=== PATIENT | male | born 1970 | race Caucasian/White ===

== ENCOUNTER 2023-06-02 21:36 | Inpatient (IN) | payer BC, MEDICAID, OTHER ==
[2023-06-02 23:03] LABS: Appearance,Urine Clear (Clear); Bacteria,Urine Rare /hpf; Bilirubin,Urine Negative (Negative); Blood,Urine Trace (Negative); Color,Urine Colorless; Glucose,Urine (UA) 3+ (Negative); Hyaline Casts,Urine 6 /lpf (0-2); Ketones,Urine Negative (Negative); Leukocyte Esterase,Urine Negative (Negative); Nitrite,Urine Negative (Negative); PH, Urine 5.5 (5.0-8.0); Protein,Urine Trace (Negative); RBC,Urine <1 /hpf (0-5); Specific Gravity,Urine 1.008 (1.001-1.035); Uric Acid Crystals,Urine Rare /hpf; Urobilinogen,Urine <2.0 mg/dL (<2.0); WBC,Urine <1 /hpf (0-5)
--- NOTE | 2023-06-02 23:12 | ED ---
General Adult HPI - General Source: patient, family, EMS, RN notes reviewed, old records reviewed Mode of arrival: EMS Limitations: altered mental status <Molina Eric - Last Filed: 06/03/23 00:51> <Gavin Moseley - Last Filed: 06/03/23 15:45> <Young Noel - Last Filed: 06/03/23 22:45> - General Chief complaint: Psychiatric Symptoms Stated complaint: mental Time Seen by Provider: 06/02/23 21:44 - History of Present Illness Initial comments: Patient is a 53-year-old male who presents emergency department after being brought in by police for paranoia, abuse. Apparently patient's mother is currently in the hospital. There is concern that he may be having increased paranoia. No history of mental health in the past. Does a history of polysubstance abuse and endorses using cocaine. Currently has no acute complaints at this time. States he thought he saw someone putting a blanket over a trash can earlier but it turned out to be a pillow. He called police who brought him here for further evaluation. Is alert and oriented x 3. No focal complaints. Does endorse drinking alcohol today. Presents for further evaluation.Denies any current suicidal, homicidal ideations, intents, plans. Denies any visual or auditory hallucinations. When police arrived, patient was holding a gun. (Molina Eric) - Related Data Home Medications Medication Instructions Recorded Confirmed ALPRAZolam [Xanax] 1 mg PO TID 06/02/23 06/02/23 Atorvastatin [Lipitor] 40 mg PO DAILY 06/02/23 06/02/23 Clopidogrel [Plavix] 75 mg PO DAILY 06/02/23 06/02/23 Cyclobenzaprine [Flexeril] 10 mg PO DAILY PRN 06/02/23 06/02/23 Ergocalciferol [Vitamin D2 (1250 1,250 mcg PO TUTH 06/02/23 06/02/23 Mcg = 15656 Iu)] Metoprolol Tartrate [Lopressor] 75 mg PO BID 06/02/23 06/02/23 lisinopriL 40 mg PO DAILY 06/02/23 06/02/23 Allergies Allergy/AdvReac Type Severity Reaction Status Date / Time No Known Allergies Allergy Verified 06/02/23 22:02 Review of Systems ROS Other: All systems not noted in ROS Statement are negative. <HernestoMolina - Last Filed: 06/03/23 00:51> ROS Other: All systems not noted in ROS Statement are negative. <Gavin Moseley - Last Filed: 06/03/23 15:45> ROS Other: All systems not noted in ROS Statement are negative. <Young Noel - Last Filed: 06/03/23 22:45> ROS Statement: Those systems with pertinent positive or pertinent negative responses have been documented in the HPI. Review of Systems: CONST: Denies fever EYES: Denies blurry vision ENT: Denies nasal congestion C/V: Denies Chest pain RESP: Denies shortness of breath GI: Denies abdominal pain : Denies dysuria SKIN: Denies rash. MSK: Denies joint pain. NEURO: Denies headache (Molina Eric) Past Medical History Past Medical History: CVA/TIA, Hypertension Additional Past Medical History / Comment(s): ETOH, diverticulitis Past Surgical History: No Surgical Hx Reported Past Psychological History: No Psychological Hx Reported Smoking Status: Former smoker Past Alcohol Use History: Abuse, Daily, Heavy Past Drug Use History: Cocaine <Molina Eric - Last Filed: 06/03/23 00:51> General Exam Limitations: altered mental status <Molina Eric - Last Filed: 06/03/23 00:51> - General Exam Comments Initial Comments: General: Appears in no acute distress. HEAD: Normal with no signs of head trauma. EYES: PERRLA, EOMI, conjunctiva normal, no discharge. ENT: Hearing grossly intact, normal oropharynx. RESPIRATORY: Clear breath sounds bilaterally. No wheezes, rales, or rhonchi. C/V: Regular rate and rhythm. S1 and S2 auscultated, no edema, peripheral pulses 2+ and intact throughout ABD: Abd is soft, nontender, nondistended EXT: Normal range of motion, no obvious deformity SKIN: No rashes or lesions observed on exposed skin. NEURO: Alert and oriented x 4. No evidence of alcohol withdrawals. No tongue fasciculations, tremors, tachycardia. (Molina Eric) Course Vital Signs 06/02/23 06/03/23 06/03/23 21:37 06:49 15:00 Temperature 98.7 F 98.4 F Pulse Rate 98 88 139 H Respiratory 18 18 18 Rate Blood Pressure 140/89 136/86 127/80 O2 Sat by Pulse 98 98 91 L Oximetry Medical Decision Making - Lab Data Result diagrams: 06/02/23 23:19 06/02/23 23:19 - EKG Data -: EKG Interpreted by Me <Molina Eric - Last Filed: 06/03/23 00:51> - Lab Data Result diagrams: 06/02/23 23:19 06/02/23 23:19 <Gavin Moseley - Last Filed: 06/03/23 15:45> - Lab Data Result diagrams: 06/02/23 23:19 06/02/23 23:19 <Young Noel - Last Filed: 06/03/23 22:45> - Medical Decision Making Was pt. sent in by a medical professional or institution (, PA, [employer] C[employer]TER, urgent care, hospital, or alf...) When possible be specific @ -No Did you speak to anyone other than the patient for history (EMS, parent, family, police, friend...)? What history was obtained from this source @ -No Did you review nursing and triage notes (agree or disagree)? Why? @ -I reviewed and agree with nursing and triage notes Were old charts reviewed (outside hosp., previous admission, EMS record, old EKG, old radiological studies, urgent care reports/EKG's, alf records)? Report findings @ -Old charts reviewed Differential Diagnosis (chest pain, altered mental status, abdominal pain women, abdominal pain men, vaginal bleeding, weakness, fever, dyspnea, syncope, headache, dizziness, GI bleed, back pain, seizure, CVA, palpatations, mental health, musculoskeletal)? @ -Differential Mental Health Depression, anxiety, bipolar, psychosis, schizophrenia, borderline personality, situational depression, adjustment disorder, behavioral disorder, brain tumor, malingering, substance abuse, encephalopathy, medication reaction, dementia, hypothyroidism, degenerative neurologic disorder, lupus.... This is not meant to be all-inclusive list EKG interpreted by me (3pts min.). @ -As above X-rays interpreted by me (1pt min.). @ -None done CT interpreted by me (1pt min.). @ -CT brain reveals no evidence of acute intracranial injury or process. U/S interpreted by me (1pt. min.). @ -None done What testing was considered but not performed or refused? (CT, X-rays, U/S, labs)? Why? @ -None What meds were considered but not given or refused? Why? @ -None Did you discuss the management of the patient with other professionals (professionals i.e. , PA, [employer] C[employer]TER, lab, RT, psych nurse, social group worker, turning sander operator, teacher, youth corrections officer, lining caser)? Give summary @ -No Was smoking cessation discussed for >3mins.? @ -No Was critical care preformed (if so, how long)? @ -No Were there social determinants of health that impacted care today? How? (Homelessness, low income, unemployed, alcoholism, drug addiction, transportation, low edu. Level, literacy, decrease access to med. care, half-way, rehab)? @ -No Was there de-escalation of care discussed even if they declined (Discuss DNR or withdrawal of care, Hospice)? DNR status @ -No What co-morbidities impacted this encounter? (DM, HTN, Smoking, COPD, CAD, Cancer, CVA, ARF, Chemo, Hep., AIDS, mental health diagnosis, sleep apnea, morbid obesity)? @ -None Was patient admitted / discharged? Hospital course, mention meds given and route, prescriptions, significant lab abnormalities, going to OR and other pertinent info. @ -Patient presents for mental health evaluation after being brought in by police for paranoia as well as being found holding a gun. He currently has no acute complaints at this time but appears intoxicated. Will obtain basic wo rkup, as well as CT brain for the new onset paranoia as he does endorse thinking he may have saw someone breaking in which is why he states he got the gun. Vital signs are within acceptable limits. No evidence of alcohol withdrawals at this time but we will place him on [facility] protocol. Patient in agreement this plan.Patient does have a history of daily alcohol abuse however currently has no evidence of alcohol withdrawals. Screening EKG reveals no evidence of acute ischemic l process. CT brain shows no obvious acute intracranial process. Laboratory studies are relatively unremarkable except for mild hypomagnesemia of 1.2. Possible slight MICHELLE as well with a creatinine of 1.74. Alcohol level negative.Patient's labs remarkable for mild hypomagnesemia which is replenished. Patient also given a 1 L fluid bolus. At this time patient is medically cleared for evaluation by psychiatry. Disposition pending psychiatric evaluation. EPS notified of the consult. Undiagnosed new problem with uncertain prognosis? @ -No Drug Therapy requiring intensive monitoring for toxicity (Heparin, Nitro, Insulin, Cardizem)? @ -No Were any procedures done? @ -No Diagnosis/symptom? @ -Encounter for psychiatric evaluation, paranoia Acute, or Chronic, or Acute on Chronic? @ -Acute Uncomplicated (without systemic symptoms) or Complicated (systemic symptoms)? @ -Complicated Side effects of treatment? @ -None Exacerbation, Progression, or Severe Exacerbation] @ -No Poses a threat to life or bodily function? @ -Possibly, yes (Molina Eric) Dr. Noel be taking over the care of this patient at 3 PM (Gavin Moseley) The patient was endorsed to me by Dr. Constantino shift change pending evaluation by EPS he is diagnosed with hallucinations both auditory and visual as well as depression and anxiety was pt. sent in by a medical professional or institution (, PA, [employer]TER, urgent care, hospital, or alf...) When possible be specific @ -Dr. Moseley Did you speak to anyone other than the patient for history (EMS, parent, family, police, friend...)? What history was obtained from this source @ -Dr. Moseley Did you review nursing and triage notes (agree or disagree)? Why? @ -I reviewed and agree with nursing and triage notes Were old charts reviewed (outside hosp., previous admission, EMS record, old EKG, old radiological studies, urgent care reports/EKG's, alf records)? Report findings @ -No old charts were reviewed Differential Diagnosis (chest pain, altered mental status, abdominal pain women, abdominal pain men, vaginal bleeding, weakness, fever, dyspnea, syncope, headache, dizziness, GI bleed, back pain, seizure, CVA, palpatations, mental health, musculoskeletal)? @ -Paranoia, depression, hallucinations EKG interpreted by me (3pts min.). @ -Not applicable X-rays interpreted by me (1pt min.). @ -None done CT interpreted by me (1pt min.). @ -None done U/S interpreted by me (1pt. min.). @ -None done What testing was considered but not performed or refused? (CT, X-rays, U/S, labs)? Why? @ -None What meds were considered but not given or refused? Why? @ -None Did you discuss the management of the patient with other professionals (professionals i.e. , PA, [employer] RE[employer] C[employer]TER, lab, RT, psych nurse, social group worker, turning sander operator, teacher, youth corrections officer, lining caser)? Give summary @ -No Was smoking cessation discussed for >3mins.? @ -No Was critical care preformed (if so, how long)? @ -No Were there social determinants of health that impacted care today? How? (Homelessness, low income, unemployed, alcoholism, drug addiction, transportation, low edu. Level, literacy, decrease access to med. care, half-way, rehab)? @ -No Was there de-escalation of care discussed even if they declined (Discuss DNR or withdrawal of care, Hospice)? DNR status @ -No What co-morbidities impacted this encounter? (DM, HTN, Smoking, COPD, CAD, Cancer, CVA, ARF, Chemo, Hep., AIDS, mental health diagnosis, sleep apnea, morbid obesity)? @ -None Was patient admitted / discharged? Hospital course, mention meds given and route, prescriptions, significant lab abnormalities, going to OR and other pertinent info. @ -Hospital course the patient was admitted to the psychiatric unit for inpatient evaluation and treatment Undiagnosed new problem with uncertain prognosis? @ -No Drug Therapy requiring intensive monitoring for toxicity (Heparin, Nitro, Insulin, Cardizem)? @ -No Were any procedures done? @ -No Diagnosis/symptom? @ -Hallucinations, depression, anxiety Acute, or Chronic, or Acute on Chronic? @ -Acute Uncomplicated (without systemic symptoms) or Complicated (systemic symptoms)? @ -Default Side effects of treatment? @ -No Exacerbation, Progression, or Severe Exacerbation? @ -No Poses a threat to life or bodily function? How? (Chest pain, [place], ND, pneumonia, PE, COPD, DKA, ARF, appy, cholecystitis, CVA, Diverticulitis, Homicidal, Suicidal, threat to staff... and all critical care pts) @ -Potential (Young Noel) - Lab Data Lab Results 06/02/23 06/02/23 06/02/23 Range/Units 22:40 22:40 23:19 WBC 9.0 (3.8-10.6) k/uL RBC 3.30 L (4.30-5.90) m/uL Hgb 11.3 L (13.0-17.5) gm/dL Hct 33.5 L (39.0-53.0) % MCV 101.7 H (80.0-100.0) fL MCH 34.3 (25.0-35.0) pg MCHC 33.7 (31.0-37.0) g/dL RDW 16.3 H (11.5-15.5) % Plt Count 372 (150-450) k/uL MPV 8.6 Neutrophils % 78 % Lymphocytes % 15 % Monocytes % 3 % Eosinophils % 1 % Basophils % 0 % Neutrophils # 7.0 (1.3-7.7) k/uL Lymphocytes # 1.4 (1.0-4.8) k/uL Monocytes # 0.3 (0-1.0) k/uL Eosinophils # 0.1 (0-0.7) k/uL Basophils # 0.0 (0-0.2) k/uL Anisocytosis Slight Macrocytosis Moderate Sodium (137-145) mmol/L Potassium (3.5-5.1) mmol/L Chloride (98-107) mmol/L Carbon Dioxide (22-30) mmol/L Anion Gap mmol/L BUN (9-20) mg/dL Creatinine (0.66-1.25) mg/dL Est GFR (CKD-EPI)AfAm (>60 ml/min/1.73 sqM) Est GFR (CKD-EPI)NonAf (>60 ml/min/1.73 sqM) Glucose (74-99) mg/dL Calcium (8.4-10.2) mg/dL Magnesium (1.6-2.3) mg/dL Urine Color Colorless Urine Appearance Clear (Clear) Urine pH 5.5 (5.0-8.0) Ur Specific [place] 1.008 (1.001-1.035) Urine Protein Trace H (Negative) Urine Glucose (UA) 3+ H (Negative) Urine Ketones Negative (Negative) Urine Blood Trace H (Negative) Urine Nitrite Negative (Negative) Urine Bilirubin Negative (Negative) Urine Urobilinogen <2.0 (<2.0) mg/dL Ur Leukocyte Esterase Negative (Negative) Urine RBC <1 (0-5) /hpf Urine WBC <1 (0-5) /hpf Uric Acid Crystals Rare H (None) /hpf Urine Bacteria Rare H (None) /hpf Hyaline Casts 6 H (0-2) /lpf Urine Opiates Screen Not Detected (NotDetected) Ur Oxycodone Screen Not Detected (NotDetected) Urine Methadone Screen Not Detected (NotDetected) Ur Barbiturates Screen Not Detected (NotDetected) U Tricyclic Antidepress Not Detected (NotDetected) Ur Phencyclidine Scrn Not Detected (NotDetected) Ur Amphetamines Screen Not Detected (NotDetected) U Methamphetamines Scrn Not Detected (NotDetected) U Benzodiazepines Scrn Detected H (NotDetected) Urine Cocaine Screen Detected H (NotDetected) U Marijuana (THC) Screen Not Detected (NotDetected) Serum Alcohol mg/dL Influenza Type A (PCR) (Not Detectd) Influenza Type B (PCR) (Not Detectd) RSV (PCR) (Not Detectd) SARS-CoV-2 (PCR) (Not Detectd) 06/02/23 06/03/23 Range/Units 23:19 13:45 WBC (3.8-10.6) k/uL RBC (4.30-5.90) m/uL Hgb (13.0-17.5) gm/dL Hct (39.0-53.0) % MCV (80.0-100.0) fL MCH (25.0-35.0) pg MCHC (31.0-37.0) g/dL RDW (11.5-15.5) % Plt Count (150-450) k/uL MPV Neutrophils % % Lymphocytes % % Monocytes % % Eosinophils % % Basophils % % Neutrophils # (1.3-7.7) k/uL Lymphocytes # (1.0-4.8) k/uL Monocytes # (0-1.0) k/uL Eosinophils # (0-0.7) k/uL Basophils # (0-0.2) k/uL Anisocytosis Macrocytosis Sodium 133 L (137-145) mmol/L Potassium 4.0 (3.5-5.1) mmol/L Chloride 95 L (98-107) mmol/L Carbon Dioxide 26 (22-30) mmol/L Anion Gap 12 mmol/L BUN 15 (9-20) mg/dL Creatinine 1.74 H (0.66-1.25) mg/dL Est GFR (CKD-EPI)AfAm 51 (>60 ml/min/1.73 sqM) Est GFR (CKD-EPI)NonAf 45 (>60 ml/min/1.73 sqM) Glucose 93 (74-99) mg/dL Calcium 9.2 (8.4-10.2) mg/dL Magnesium 1.2 L (1.6-2.3) mg/dL Urine Color Urine Appearance (Clear) Urine pH (5.0-8.0) Ur Specific [place] (1.001-1.035) Urine Protein (Negative) Urine Glucose (UA) (Negative) Urine Ketones (Negative) Urine Blood (Negative) Urine Nitrite (Negative) Urine Bilirubin (Negative) Urine Urobilinogen (<2.0) mg/dL Ur Leukocyte Esterase (Negative) Urine RBC (0-5) /hpf Urine WBC (0-5) /hpf Uric Acid Crystals (None) /hpf Urine Bacteria (None) /hpf Hyaline Casts (0-2) /lpf Urine Opiates Screen (NotDetected) Ur Oxycodone Screen (NotDetected) Urine Methadone Screen (NotDetected) Ur Barbiturates Screen (NotDetected) U Tricyclic Antidepress (NotDetected) Ur Phencyclidine Scrn (NotDetected) Ur Amphetamines Screen (NotDetected) U Methamphetamines Scrn (NotDetected) U Benzodiazepines Scrn (NotDetected) Urine Cocaine Screen (NotDetected) U Marijuana (THC) Screen (NotDetected) Serum Alcohol <10 mg/dL Influenza Type A (PCR) Not Detected (Not Detectd) Influenza Type B (PCR) Not Detected (Not Detectd) RSV (PCR) Not Detected (Not Detectd) SARS-CoV-2 (PCR) Not Detected (Not Detectd) - EKG Data EKG Comments: 12-lead Electrocardiogram Interpretation Note EKG was reviewed and interpreted by myself. 12-lead ECG performed at 0023 is interpreted by me as revealing normal sinus rhythm at a rate of 91 beats per minute. [place] is normal. RI interval is 168 ms, QRS duration is 91 ms, QTc is 397 ms.. There were no ST or T wave abnormalities to suggest myocardial ischemia or injury. R wave progression across the precordium was satisfactory. By my interpretation this EKG is non-diagnostic for acute ischemia. (Molina Eric) Disposition <Molina Eric - Last Filed: 06/03/23 00:51> <Gavin Moseley - Last Filed: 06/03/23 15:45> Decision Date: 06/03/23 <Young Noel - Last Filed: 06/03/23 22:45> Clinical Impression: Encounter for psychiatric assessment, Paranoia, Depression, Acute anxiety, Hallucinations Disposition: TRANSFER TO PSYCH HOSP/UNIT Condition: Stable
[2023-06-02 23:15] LABS: Amphetamine Screen,Urine Not Detected (NotDetected); Barbiturate Screen,Urine Not Detected (NotDetected); Benzodiazepines Screen,Urine Detected (NotDetected); Cocaine Screen,Urine Detected (NotDetected); Methadone Screen, Urine Not Detected (NotDetected); Opiate Screen,Urine Not Detected (NotDetected); Oxycodone Screen, Urine Not Detected (NotDetected); Phencyclidine Screen,Urine Not Detected (NotDetected); Tricyclic Antidepressant,Urine Not Detected (NotDetected); Urn Cannabinoid Scrn Not Detected (NotDetected)
[2023-06-02 23:25] LABS: Anisocytosis Slight; Basophils % (A) 0 %; Eosinophils # (A) 0.1 k/uL (0-0.7); Eosinophils % (A) 1 %; HCT 33.5 % (39.0-53.0); HGB 11.3 gm/dL (13.0-17.5); Lymphocytes # (A) 1.4 k/uL (1.0-4.8); Lymphocytes % (A) 15 %; MCH 34.3 pg (25.0-35.0); MCHC 33.7 g/dL (31.0-37.0); MCV 101.7 fL (80.0-100.0); Macrocytosis Moderate; Mean Platelet Volume 8.6; Monocytes # (A) 0.3 k/uL (0-1.0); Monocytes % (A) 3 %; Neutrophils % (A) 78 %; Platelet Count 372 k/uL (150-450); RDW 16.3 % (11.5-15.5)
[2023-06-02 23:40] LABS: African American GFR (CKD) 51 (>60 ml/min/1.73 sqM); Alcohol <10 mg/dL; Anion Gap 12 mmol/L; Blood Urea Nitrogen 15 mg/dL (9-20); Calcium 9.2 mg/dL (8.4-10.2); Carbon Dioxide 26 mmol/L (22-30); Chloride 95 mmol/L (98-107); Glucose 93 mg/dL (74-99); Magnesium 1.2 mg/dL (1.6-2.3); Non-African American GFR(CKD) 45 (>60 ml/min/1.73 sqM); Sodium 133 mmol/L (137-145)
[2023-06-03] MEDS: SODIUM CHLORIDE 0.9% 1,000 ML IV STA (00:14)
[2023-06-03] MEDS: MAGNESIUM SULFATE-D5W PMX 1 GM in DEXTROSE/WATER 1 100ML.BAG IVPB ONE (00:14)
--- NOTE | 2023-06-03 00:23 | CT ---
EXAM: CT Head Without Intravenous Contrast CLINICAL HISTORY: ITS.REASON CT Reason: paranoia, new onset TECHNIQUE: Axial computed tomography images of the head/brain without intravenous contrast. CTDI is 49.2 mGy and DLP is 1183.4 mGy-cm. This CT exam was performed using one or more of the following dose reduction techniques: automated exposure control, adjustment of the mA and/or kV according to patient size, and/or use of iterative reconstruction technique. COMPARISON: No relevant prior studies available. FINDINGS: Brain: Unremarkable. No hemorrhage. No significant white matter disease. No edema. Small pineal cyst. Ventricles: Unremarkable. No ventriculomegaly. Bones/joints: Unremarkable. No acute fracture. Soft tissues: Unremarkable. Sinuses: Unremarkable as visualized. No acute sinusitis. Mastoid air cells: Unremarkable as visualized. No mastoid effusion. IMPRESSION: No evidence of acute intracranial pathology.
[2023-06-03] MEDS ORDERED: LORazepam 2 MG/ML INJ IV PRN ×3 (00:51)
[2023-06-03] MEDS: THIAMINE 100 MG/ML 2 ML VIAL IM STA (00:58)
[2023-06-03] MEDS ORDERED: CYCLOBENZAPRINE 10 MG TAB PO PRN (16:00)
[2023-06-03] MEDS: ALPRAZolam 1 MG TAB PO SCH (16:14)
[2023-06-03] MEDS: lisinopriL 20 MG TAB PO ONE (16:19)
[2023-06-03] MEDS: METOPROLOL TARTRATE 25 MG TAB PO ONE (16:20)
[2023-06-03] MEDS ORDERED: LORazepam 1 MG TAB PO PRN ×3 (17:59→18:41)
[2023-06-03] MEDS ORDERED: MAG HYDROX/AL HYDROX/SIMETH 30 ML CUP PO PRN (17:59)
[2023-06-03] MEDS ORDERED: HALOPERIDOL LACTATE 5 MG/ML 1 ML VIAL IM PRN (17:59)
[2023-06-03] MEDS ORDERED: MAGNESIUM HYDROXIDE 2,400 MG/30 ML CUP PO PRN (17:59)
[2023-06-03] MEDS ORDERED: haloperidoL 5 MG TAB PO PRN (17:59)
[2023-06-03] MEDS ORDERED: ACETAMINOPHEN TAB 325 MG TAB PO PRN (17:59)
[2023-06-03] MEDS: LORazepam 1 MG TAB PO PRN (19:50)
[2023-06-03] MEDS: METOPROLOL TARTRATE 25 MG TAB PO SCH (19:56)
[2023-06-03] MEDS ORDERED: METOPROLOL TARTRATE 25 MG TAB PO SCH (21:00)
[2023-06-04] MEDS: MULTIVITAMINS, THERA 1 EACH TAB PO SCH (07:56)
[2023-06-04] MEDS: lisinopriL 20 MG TAB PO SCH (07:57)
[2023-06-04] MEDS: FOLIC ACID 1 MG TAB PO SCH (07:59)
[2023-06-04] MEDS: THIAMINE 100 MG TAB PO SCH (07:59)
[2023-06-04] MEDS: ATORVASTATIN 40 MG TAB PO SCH (07:59)
[2023-06-04] MEDS ORDERED: lisinopriL 20 MG TAB PO SCH (09:00)
[2023-06-04] MEDS: CLOPIDOGREL 75 MG TAB PO SCH (09:44)
--- NOTE | 2023-06-04 13:35 | P.MDCNMH ---
History of Present Illness H&P Date: 06/04/23 History of present illness; patient 53-year-old gentleman with past medical history significant for stroke, hypertension brought to the ER for psychiatric evaluation. Patient was brought in by police for increased paranoia. Patient called police as he thought somebody put a blanket over trash can. Police found him holding a gun. There was no complaint of auditory or visual hallucinations. Denies any homicidal or suicidal thoughts. Patient was workup in the ER Initial lab work done in the ER showed WBC 9, hemoglobin 9.3, platelet count 372, sodium 133, potassium 4, BUN 15, creatinine 1.74 UA showed nitrite negative, leukocyte esterase negative, urine WBC less than 1 Influenza A not detected Influenza B not detected RSV not detected COVID-19 not detected Urine tox screen positive for benzodiazepine and cocaine EKG done in the ER showed heart rate of 91, no ST segment elevation or de pression seen, no T-wave inversions seen. CT head done showed no acute intracranial process Patient admitted to psych REVIEW OF SYSTEMS: CONSTITUTIONAL: No fever, no malaise, no fatigue. HEENT: No recent visual problems or hearing problems. Denied any sore throat. CARDIOVASCULAR: No chest pain, orthopnea, PND, no palpitations, no syncope. PULMONARY: No shortness of breath, no cough, no hemoptysis. GASTROINTESTINAL: No diarrhea, no nausea, no vomiting, no abdominal pain. NEUROLOGICAL: No headaches, no weakness, no numbness. HEMATOLOGICAL: Denies any bleeding or petechiae. GENITOURINARY: Denies any burning micturition, frequency, or urgency. MUSCULOSKELETAL/RHEUMATOLOGICAL: Denies any joint pain, swelling, or any muscle pain. ENDOCRINE: Denies any polyuria or polydipsia. The rest of the 14-point review of systems is negative. PHYSICAL EXAMINATION: GENERAL: The patient is alert and oriented x3, not in any acute distress. Well developed, well nourished. HEENT: Pupils are round and equally reacting to light. EOMI. No scleral icterus. No conjunctival pallor. Normocephalic, atraumatic. No pharyngeal erythema. No thyromegaly. CARDIOVASCULAR: S1 and S2 present. No murmurs, rubs, or gallops. PULMONARY: Chest is clear to auscultation, no wheezing or crackles. ABDOMEN: Soft, nontender, nondistended, normoactive bowel sounds. No palpable organomegaly. MUSCULOSKELETAL: No joint swelling or deformity. EXTREMITIES: No cyanosis, clubbing, or pedal edema. NEUROLOGICAL: Gross neurological examination did not reveal any focal deficits. SKIN: No rashes. Assessment and plan Paranoia Polysubstance abuse Alcohol abuse Hypertension History of stroke Monitor vital signs Continue Plavix Continue Lipitor Hold lisinopril for now, resume once systolic blood pressures more than 130 Continue Lopressor Continue psych meds per psychiatry team Labs and medication were reviewed.. Continue same treatment. Continue with symptomatic treatment. Resume home medication. Monitor labs and vitals. DVT and GI prophylaxis. Further recommendations as per clinical course of the patient Dictation was produced using [employer] dictation software. please excuse any grammatical, word or spelling errors. Past Medical History Past Medical History: CVA/TIA, Hyperlipidemia, Hypertension Additional Past Medical History / Comment(s): ETOH, diverticulitis History of Any Multi-Drug Resistant Organisms: None Reported Past Surgical History: Bowel Resection Additional Past Surgical History / Comment(s): 6 in of bowel removed. carotid artery surgery Past Anesthesia/Blood Transfusion Reactions: No Reported Reaction Smoking Status: Former smoker, Vaper - Past Family History Mother Family Medical History: CVA/TIA Medications and Allergies Home Medications Medication Instructions Recorded Confirmed Type ALPRAZolam [Xanax] 1 mg PO TID 06/02/23 06/02/23 History Atorvastatin [Lipitor] 40 mg PO DAILY 06/02/23 06/02/23 History Clopidogrel [Plavix] 75 mg PO DAILY 06/02/23 06/02/23 History Cyclobenzaprine [Flexeril] 10 mg PO DAILY PRN 06/02/23 06/02/23 History Ergocalciferol [Vitamin D2 (1250 1,250 mcg PO TUTH 06/02/23 06/02/23 History Mcg = 97608 Iu)] Metoprolol Tartrate [Lopressor] 75 mg PO BID 06/02/23 06/02/23 History lisinopriL 40 mg PO DAILY 06/02/23 06/02/23 History Allergies Allergy/AdvReac Type Severity Reaction Status Date / Time No Known Allergies Allergy Verified 06/02/23 22:02 Physical Exam Vitals: Vital Signs Temp Pulse Pulse Resp BP BP Pulse Ox 06/03/23 22:30 97.0 F L 78 16 110/71 95 06/03/23 19:52 98.0 F 100 18 98/60 98 06/03/23 18:44 97.0 F L 78 16 110/71 93 L 06/03/23 15:00 139 H 18 127/80 91 L Intake and Output 06/03/23 06/04/23 06/04/23 22:59 06:59 14:59 Other: Weight 124.5 kg Cranial Nerve Examination - Cranial Nerves Cranial Nerve II- Optic: Intact (Cranial nerves II to XII intact) Cranial Nerve III- Oculomotor: Intact Cranial Nerve IV- Trochlear: Intact Cranial Nerve V- Trigeminal: Intact Cranial Nerve - Abducens: Intact Cranial Nerve VII- Facial: Intact Cranial Nerve VIII- Auditory: Intact Cranial Nerve IX- Glossopharyngeal: Intact Cranial Nerve X- Vagus: Intact Cranial Nerve XI- Accessory: Intact Cranial Nerve XII- Hypoglossal: Intact Results CBC & Chem 7: 06/02/23 23:19 06/02/23 23:19
[2023-06-04] MEDS: GABAPENTIN 100 MG CAP PO SCH (16:09)
[2023-06-04] MEDS: LORazepam 1 MG TAB PO PRN (20:08)
--- NOTE | 2023-06-04 22:51 | P.HP ---
Psychiatric H&P - . H&P Date: 06/04/23 History & Physical: Allergies Allergy/AdvReac Type Severity Reaction Status Date / Time No Known Allergies Allergy Verified 06/02/23 22:02 Vital Signs Temp 97.0 F L 06/03/23 22:30 Pulse 78 06/03/23 22:30 Resp 16 06/03/23 22:30 BP 110/71 06/03/23 22:30 Pulse Ox 95 06/03/23 22:30 FiO2 Intake & Output 06/03/23 06/04/23 06/04/23 18:59 06:59 18:59 Weight 124.5 kg 124.5 kg Laboratory Last Values WBC 9.0 k/uL (3.8-10.6) 06/02/23 23:19 RBC 3.30 m/uL (4.30-5.90) L 06/02/23 23:19 Hgb 11.3 gm/dL (13.0-17.5) L 06/02/23 23:19 Hct 33.5 % (39.0-53.0) L 06/02/23 23:19 MCV 101.7 fL (80.0-100.0) H 06/02/23 23:19 MCH 34.3 pg (25.0-35.0) 06/02/23 23:19 MCHC 33.7 g/dL (31.0-37.0) 06/02/23 23:19 RDW 16.3 % (11.5-15.5) H 06/02/23 23:19 Plt Count 372 k/uL (150-450) 06/02/23 23:19 MPV 8.6 06/02/23 23:19 Neutrophils % 78 % 06/02/23 23:19 Lymphocytes % 15 % 06/02/23 23:19 Monocytes % 3 % 06/02/23 23:19 Eosinophils % 1 % 06/02/23 23:19 Basophils % 0 % 06/02/23 23:19 Neutrophils # 7.0 k/uL (1.3-7.7) 06/02/23 23:19 Lymphocytes # 1.4 k/uL (1.0-4.8) 06/02/23 23:19 Monocytes # 0.3 k/uL (0-1.0) 06/02/23 23:19 Eosinophils # 0.1 k/uL (0-0.7) 06/02/23 23:19 Basophils # 0.0 k/uL (0-0.2) 06/02/23 23:19 Anisocytosis Slight 06/02/23 23:19 Macrocytosis Moderate 06/02/23 23:19 Sodium 133 mmol/L (137-145) L 06/02/23 23:19 Potassium 4.0 mmol/L (3.5-5.1) 06/02/23 23:19 Chloride 95 mmol/L (98-107) L 06/02/23 23:19 Carbon Dioxide 26 mmol/L (22-30) 06/02/23 23:19 Anion Gap 12 mmol/L 06/02/23 23:19 BUN 15 mg/dL (9-20) 06/02/23 23:19 Creatinine 1.74 mg/dL (0.66-1.25) H 06/02/23 23:19 Est GFR (CKD-EPI)AfAm 51 (>60 ml/min/1.73 sqM) 06/02/23 23:19 Est GFR (CKD-EPI)NonAf 45 (>60 ml/min/1.73 sqM) 06/02/23 23:19 Glucose 93 mg/dL (74-99) 06/02/23 23:19 Calcium 9.2 mg/dL (8.4-10.2) 06/02/23 23:19 Magnesium 1.2 mg/dL (1.6-2.3) L 06/02/23 23:19 TSH 4.660 mIU/L (0.465-4.680) 06/02/23 23:19 Urine Color Colorless 06/02/23 22:40 Urine Appearance Clear (Clear) 06/02/23 22:40 Urine pH 5.5 (5.0-8.0) 06/02/23 22:40 Ur Specific [place] 1.008 (1.001-1.035) 06/02/23 22:40 Urine Protein Trace (Negative) H 06/02/23 22:40 Urine Glucose (UA) 3+ (Negative) H 06/02/23 22:40 Urine Ketones Negative (Negative) 06/02/23 22:40 Urine Blood Trace (Negative) H 06/02/23 22:40 Urine Nitrite Negative (Negative) 02/15/24 22:40 Urine Bilirubin Negative (Negative) 06/02/23 22:40 Urine Urobilinogen <2.0 mg/dL (<2.0) 06/02/23 22:40 Ur Leukocyte Esterase Negative (Negative) 06/02/23 22:40 Urine RBC <1 /hpf (0-5) 06/02/23 22:40 Urine WBC <1 /hpf (0-5) 06/02/23 22:40 Uric Acid Crystals Rare /hpf (None) H 06/02/23 22:40 Urine Bacteria Rare /hpf (None) H 06/02/23 22:40 Hyaline Casts 6 /lpf (0-2) H 06/02/23 22:40 Urine Opiates Screen Not Detected (NotDetected) 06/02/23 22:40 Ur Oxycodone Screen Not Detected (NotDetected) 06/02/23 22:40 Urine Methadone Screen Not Detected (NotDetected) 06/02/23 22:40 Ur Barbiturates Screen Not Detected (NotDetected) 06/02/23 22:40 U Tricyclic Antidepress Not Detected (NotDetected) 06/02/23 22:40 Ur Phencyclidine Scrn Not Detected (NotDetected) 06/02/23 22:40 Ur Amphetamines Screen Not Detected (NotDetected) 06/02/23 22:40 U Methamphetamines Scrn Not Detected (NotDetected) 06/02/23 22:40 U Benzodiazepines Scrn Detected (NotDetected) H 06/02/23 22:40 Urine Cocaine Screen Detected (NotDetected) H 06/02/23 22:40 U Marijuana (THC) Screen Not Detected (NotDetected) 06/02/23 22:40 Serum Alcohol <10 mg/dL 06/02/23 23:19 Influenza Type A (PCR) Not Detected (Not Detectd) 06/03/23 13:45 Influenza Type B (PCR) Not Detected (Not Detectd) 06/03/23 13:45 RSV (PCR) Not Detected (Not Detectd) 06/03/23 13:45 SARS-CoV-2 (PCR) Not Detected (Not Detectd) 06/03/23 13:45 Initial Psychiatric Evaluation The patient is a 53-year-old male who currently lives by himself, employed, has psychiatric history (anxiety disorder, and a medical history of hypertension, hyperlipidemia, and stroke, brought himself to the hospital due to chief complaint of auditory and visual hallucinations. Chief Complaint: " I was hearing voices and seeing people in my house" History of Present Illness: The patient presented to emergency department, brought in by police because of paranoia that strange people are in his house. Reportedly, the patient has been facing multiple stressors including his mother in the hospital, and he has been drinking heavily for the past few days. The patient expressed paranoia when he came to the hospital. No history of previous psychiatric diagnosis. Patient reported visual hallucinations that he was seeing people putting a blanket over a trash can, but it turned out to be a pillow. The patient called the police w ho brought him to the hospital for further evaluation. The patient presented alert and fully oriented. He reported no suicidal or homicidal ideation. When the police brought him to the hospital he was holding a gun. Apparently the patient's was paranoid and delusional. He tried to yony those people in his house and about to shoot them. Upon psychiatric evaluation today, the patient presented calm and cooperative but partially disheveled. He reported that he came to the hospital because he was experiencing visual and auditory hallucinations that he was seen stranger in his house and hearing them mumbling. He reported his symptoms started the day before he came to the hospital and he had no similar symptoms in the past. The patient denies history of psychiatric diagnosis besides anxiety disorder. He reported dealing with a lot of distress including his mother illness and she needs to be in a skilled nursing, and he was drinking heavily for a few days prior to come to the hospital. He reported was drinking about one fifth of liquor daily for 3 days with the last time was about 2-3 days ago. He denies regular use of alcohol and usually he drinks 3 beers few times a week. The patient denies suicidal or homicidal ideation. He was talking about his diagnosis with a stroke at age 61 and recently he was in financial restrain besides his mother became very sick and he couldn't take care of her at his house. The patient denies depression symptoms including episodes of sadness, hopelessness, or suicidal ideation. He reported history of anxiety since he was younger that he is always having uncontrolled worry, racing thoughts, and sometimes panic attacks. The patient reported has been prescribed Xanax for years and if he didn't take it, he may go through withdrawal. He was educated about Ativan is an alternative for Xanax and the patient didn't report any was over symptoms since he came to this unit. The patient is currently maintained on Ativan for managing anxiety and to control withdrawal symptoms. He is also maintained on CIWA monitoring for withdrawal symptoms. The patient reported tried different medications in the past for managing anxiety symptoms as Zoloft and Valium but none of them was helpful. The patient requested to follow-up with talk therapy after discharge from this unit. Patient denies any history of hallucinations, paranoia, or delusions. He denies history of manic symptoms including times with elevated mood, grandiosity, or impulsive/uninhibited behavior. Patient denies history of self-injurious behavior. He denies history of substance use disorders treatment. He reported DUI in 2016. Past Psychiatric History: Previous diagnoses: Anxiety disorder Previous psychiatric hospitalizations: None reported Previous suicide attempts: Denies Current psychiatric medications: Xanax 1 mg TID for treating anxiety symptoms. Prescribed by his PCP Previous outpatient psychiatric treatment and medication trials: Zoloft and Gege ium for treating anxiety but none was helpful PAST MEDICAL HISTORY: History of Stroke at age 41. Hypertension FAMILY HISTORY: Psychiatric Illness: None reported Substance abuse: None reported Completed Suicides: None reported Substance Use History: Nicotine: Quit smoking 2 years ago. Used to smoke about 1.5 PPD for about 10 years. Alcohol: History of heavy alcohol drinking when he was younger in his 20s, no history of [facility] treatment, and reported one DUI in 2016. Cannabis: None reported. Other Drugs: Experimented cocaine when he was younger by snorting. Never had IVUD. SOCIAL HISTORY: Patient was born in [place] and been raised up by by his mother after parents when he was 14-year-old Children: Patient reports having no children. 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 Education: Patient reports attaining an educational level of Bachelor degree in electrical engineering Patient reports fair academic performance at different levels of education. Legal history: DUI in 2016 Allergies: None reported Mental Status Examination: Appearance: Appears stated age, adequately groomed, average body built, and no specific features. Gait/ posture: Normal gait, normal arm swinging, no abnormal movements. Attitude and Behavior: Engaged, cooperative, maintained eye contact during course of interview. Motor Activity: Decreased psychomotor activity. Speech: slow rate, normal rhythm, articulation, and prosody. None pressured. Mood: " Anxious Affect: Constricted, congruent to mood, appropriate to context and situation. Thought form: Goal directed, linear, and relevant, not incoherent and no clang association. Association: Intact Thought content: Logical, non-delusional, denies suicidal, homicidal thoughts, intentions, or plans. Perception: Denies any auditory/ visual or tactile hallucinations. Attention: No impairment. Orientation: Oriented to time, place, person, and situation. Insight & Judgment: fair Impulse control: Fair Assessment: Generalized anxiety disorder Alcohol use disorder, mild. Alcohol and used psychosis Plan: Continue inpatient level of care due to patient's needs criteria for inpatient psychiatric hospitalization. He presented with symptoms of severe psychosis and paranoia that wants him at danger to hurt himself and others as he was holding a gun and he chasing delusional people in his house. The patient was admitted voluntarily Precautions: continue 15 minutes check for safety with precautions including suicide and elopement. Consider medical consultation if any acute medical issues arise . Medical team was called because the patient had low blood pressure Psycho-education regarding: Nature of psychiatric illnesses and treatment options. Medications: Ativan 1 mg 3 times daily for anxiety, and to prevent withdrawal symptoms. The patient's was drinking heavily and he was maintained on Xanax 1 mg 3 times daily as home medication for managing anxiety. Neurontin 100 mg 3 times daily for managing anxiety and postacute withdrawal syndrome. Labs:Repeat sodium and magnesium levels as he presented to the ED was low sodium and magnesium and received treatment in ED, but no updated labs. Continue management of non-psychiatric chronic medical condition/s as per home medications considering that patient is stable medically. continue lisinopril, Plavix, and Lipitor Discharge patient to outpatient services upon stabilization Prognosis: Guarded Expected LOS: 5-7 days Consent obtained to start new medication. Patient was educated about new medication/s including purpose and intended effects, and possible side effects. Patient agreed to start medication/s, verbalized understanding of risks, benefits, and treatment alternatives. Patient strengths: Housing Stable medical condition Patient Challenges: Limited social support Heavy alcohol drinking and
[2023-06-05 08:16] LABS: ALT 27 U/L (4-49); AST 63 U/L (17-59); African American GFR (CKD) >90 (>60 ml/min/1.73 sqM); Albumin 3.7 g/dL (3.5-5.0); Alkaline Phosphatase 123 U/L (38-126); Anion Gap 8 mmol/L; Blood Urea Nitrogen 7 mg/dL (9-20); Calcium 8.8 mg/dL (8.4-10.2); Carbon Dioxide 30 mmol/L (22-30); Chloride 101 mmol/L (98-107); Glucose 101 mg/dL (74-99); Magnesium 1.7 mg/dL (1.6-2.3); Non-African American GFR(CKD) >90 (>60 ml/min/1.73 sqM); Potassium 4.1 mmol/L (3.5-5.1); Sodium 139 mmol/L (137-145); Total Bilirubin 0.5 mg/dL (0.2-1.3); Total Protein 6.6 g/dL (6.3-8.2)
[2023-06-05 12:31] LABS: African American GFR (CKD) >90 (>60 ml/min/1.73 sqM); Anion Gap 7 mmol/L; Blood Urea Nitrogen 6 mg/dL (9-20); Calcium 9.1 mg/dL (8.4-10.2); Carbon Dioxide 30 mmol/L (22-30); Chloride 102 mmol/L (98-107); Glucose 97 mg/dL (74-99); Magnesium 1.7 mg/dL (1.6-2.3); Non-African American GFR(CKD) >90 (>60 ml/min/1.73 sqM); Sodium 139 mmol/L (137-145)
[2023-06-06 09:09] VITALS: RESP 16
--- NOTE | 2023-06-06 11:42 | P.PN ---
Progress Note - Text Progress Note Date: 06/05/23 Interval History: The patient was seen today as coverage for Dr. Ang. Their chart was reviewed, and the case was discussed with the nursing staff. The patient reported feeling his mood is down and depressed; however, he denies suicidal ideation or hopelessness. The patient denies severe mood swings, agitation, or homicidal ideation. He reported that he wants to help his mother who had a stroke. As per nursing staff, the patient's sister called the unit earlier today and informed the staff that the patient's mother , and the patient has not been informing yet. Discussing with the nursing staff, the team agreed to arrange for family to come with the orthopedic physician to deliver this information to the patient during special visitation today. The patient reported increased anxiety, but denies withdrawal symptoms as shakiness, tremors, or sweating. The patient reports fair sleep and appetite. He has been taking his psychiatric medications and denied side effects. The patient denied suicidal or homicidal ideation, and in no reports of hallucinations, paranoid ideation, delusions, or manic symptoms. Mental Status Examination: Appearance: Appears stated age, adequately groomed, average body built, and no specific features. Gait/ posture: Normal gait, normal arm swinging, no abnormal movements. Attitude and Behavior: Engaged, cooperative, maintained eye contact during course of interview. Motor Activity: Decreased psychomotor activity. Speech: slow rate, normal rhythm, articulation, and prosody. None pressured. Mood: " Anxious Affect: Constricted, congruent to mood, appropriate to context and situation. Thought form: Goal directed, linear, and relevant, not incoherent and no clang association. Association: Intact Thought content: Logical, non-delusional, denies suicidal, homicidal thoughts, intentions, or plans. Perception: Denies any auditory/ visual or tactile hallucinations. Attention: No impairment. Orientation: Oriented to time, place, person, and situation. Insight & Judgment: limited Impulse control: limited Assessment: Generalized anxiety disorder Alcohol use disorder, mild. Alcohol and used psychosis Plan: Continue inpatient level of care due to patient's needs criteria for inpatient psychiatric hospitalization. He presented with symptoms of severe psychosis and paranoia that puts him at danger to hurt himself and others as he was holding a gun and he chasing non-existing people in his house. The patient was admitted voluntarily Precautions: continue 15 minutes check for safety with precautions including suicide and elopement. Consider medical consultation if any acute medical issues arise . Medical team was called because the patient had low blood pressure Psycho-education regarding: Nature of psychiatric illnesses and treatment options. As per nursing staff, the patient's sister called the unit earlier today and informed the staff that the patient's mother , and the patient has not been informing yet. Discussing with the nursing staff, the team agreed to arrange for family to come with the orthopedic physician to deliver this information to the patient during special visitation today. Medications: Continue Ativan 1 mg 3 times daily PRN for anxiety, and to prevent withdrawal symptoms. The patient's was drinking heavily and he was maintained on Xanax 1 mg 3 times daily as home medication for managing anxiety. Continue Neurontin 100 mg 3 times daily for managing anxiety and postacute withdrawal syndrome. Labs:Repeat sodium and magnesium levels as he presented to the ED was low sodium and magnesium and received treatment in ED, but no updated labs. Continue management of non-psychiatric chronic medical condition/s as per home medications considering that patient is stable medically. continue lisinopril, Plavix, and Lipitor Discharge patient to outpatient services upon stabilization
[2023-06-06] MEDS ORDERED: traZODone HCL 50 MG TAB PO PRN (11:56)
--- NOTE | 2023-06-06 12:01 | P.PN ---
Progress Note - Text Progress Note Date: 06/06/23 Interval History: Patient was seen wandering the hallways and was directable and agreeable to sp celine with service writer in the office. Patient states he is doing better now, and not endorsing any withdraw symptoms from alcohol at all. He claims he can drink, then stop with no ill effects. Spoke with patient to see if he would like to attend rehab, patient stated he will attend AA when he gets out. Patient claiming that he has tried all medications and that none of them work for him. Patient is minimizing his need for treatment. Patient was fairly superficial, focused on discharge and minimizing need for medications. At this time patient denies any suicidal or homicidal ideations, intent or plan. Patient denies any auditory, visual hallucinations and denies any paranoia or delusions. Patient denies any side effects from the medications and has been compliant with meds. Mental Status Exam: General Appearance: Patient appears to be stated age is alert, directable, and cooperative. Dressed in street clothes, greying hair, macdonald. slightly overweight. Behavior: Patient is calmly seated without any agitated behavior. Minimizing behaviors and need for treatment Speech: Patient's speech is fluent and nonpressured. mildly argumentative Mood/Affect: Mood is improving mildly, affect is congruent and constricted. Suicidality/Homicidality: Patient denies having any suicidal or homicidal ideation intent or plan. Perceptions: Patient denies any visual hallucinations and denies any auditory hallucinations Though content/process: There is no evidence of any delusional thought content and thought process is linear and goal-directed. Focused on discharge. Memory and concentration: AOX3, grossly intact for the purposes of this session Judgment and insight: poor Assessment psychosis, unspecified adjustment disorder with disturbance in emotions and conduct alcohol use disorder, currently in withdraw cocaine use disorder rule out benzodiazipine abuse Plan: -Patient continues to meet criteria for inpatient psychiatric admission for symptom stabilization and safety. Patient has signed adult voluntary form and medication consent and was placed in patient's chart. -Medications: Start Zoloft 25mg daily for mood/anxiety trazadone 50mg qhs prn for sleep. librium 20 mg tid for etoh withdrawal and continue to taper down. -CIWA protocol with as needed Ativan. -When necessary Ativan and Haldol for agitation/aggression. -NRT - nicotine patch -SW on board for discharge planning. Encouraged the patient to participate in milieu. Suggested family meeting prior to discharge to discuss patients mother passing with his sister. Offered patient rehab upon discharge, patient declined.
[2023-06-06] MEDS: SERTRALINE 25 MG TAB PO SCH (12:04)
[2023-06-06] MEDS ORDERED: traZODone HCL 50 MG TAB PO SCH (21:00)
--- NOTE | 2023-06-07 11:58 | P.PN ---
Progress Note - Text Progress Note Date: 06/07/23 Interval History: Patient was seen wandering the hallways and was directable and agreeable to sp celine with policy writer in the office. Patient states he is "hanging in there" , and not endorsing any withdraw symptoms from alcohol at all. Patient had a visit from his brother in law yesterday, telling him his mother had . States he is pretty sad, that he really don't have anyone anymore now, because his sister has her own family. He also states that he wants to live his life the way him mom would want him to live, and live a better, sober life. Patient states that he did plan on having someone to talk to once he gets out to keep him on the sober path. Patient claims that he did not sleep very well last night. At this time patient denies any suicidal or homicidal ideations, intent or plan. Patient denies any auditory, visual hallucinations and denies any paranoia or delusions. Patient denies any side effects from the medications and has been compliant with meds. Mental Status Exam: General Appearance: Patient appears to be stated age is alert, directable, and cooperative. Dressed in street clothes, greying hair, macdonald. slightly overweight. Behavior: Patient is calmly seated without any agitated behavior. Speech: Patient's speech is fluent and nonpressured. Mood/Affect: Mood is improving mildly, affect is congruent and constricted. mildly improving Suicidality/Homicidality: Patient denies having any suicidal or homicidal ideation intent or plan. Perceptions: Patient denies any visual hallucinations and denies any auditory hallucinations Though content/process: There is no evidence of any delusional thought content and thought process is linear and goal-directed. Memory and concentration: AOX3, grossly intact for the purposes of this session Judgment and insight: improving Assessment psychosis, unspecified adjustment disorder with disturbance in emotions and conduct alcohol use disorder, currently in withdraw cocaine use disorder rule out benzodiazipine abuse Plan: -Patient continues to meet criteria for inpatient psychiatric admission for symptom stabilization and safety. Patient has signed adult voluntary form and medication consent and was placed in patient's chart. -Medications: increase Zoloft 50mg daily for mood/anxiety change trazadone 50mg qhs to scheduled for sleep. change librium 10 mg tid for etoh withdrawal and discontinue tomorrow. -CIWA protocol with as needed Ativan. -When necessary Ativan and Haldol for agitation/aggression. -NRT - nicotine patch -SW on board for discharge planning. Encouraged the patient to participate in milieu. Patient discharge tomorrow, still refusing rehab, wants outpatient MH and [facility] treatment instead.
[2023-06-07] MEDS: SERTRALINE 25 MG TAB PO ONE (12:17)
[2023-06-07] MEDS: ERGOCALCIFEROL 1,250 MCG (50,000 IU) CAPSULE PO SCH (16:45)
[2023-06-07] MEDS: traZODone HCL 50 MG TAB PO SCH (20:11)
[2023-06-08 07:19] VITALS: TEMP 97.7
--- NOTE | 2023-06-08 08:46 | P.DS ---
Providers Date of admission: 06/03/23 17:52 Attending physician: Bucky Ang MD Consults: 06/03/23 17:59 Consult Physician Routine Consulting Provider: Dante Borges Consult Reason/Comments: H & P and medical care Do you want consulting provider notified?: Yes Primary care physician: Shell Bell - Discharge Diagnosis(es) (1) Depression Current Visit: Yes Status: Acute (2) Major depressive disorder in full remission Current Visit: Yes Status: Resolved Priority: Medium Hospital Course: After hospitalization patient received a routine physical examination Physical to the admission note for further details Psychiatric problems identified included depression and anxiety and alcohol use disorder Patient responded fairly today current management where at the time of discharge patient was not suicidal or homicidal Following protocol was maintain as per Dr. Blount -Patient continues to meet criteria for inpatient psychiatric admission for symptom stabilization and safety. Patient has signed adult voluntary form and me dication consent and was placed in patient's chart. -Medications: increase Zoloft 50mg daily for mood/anxiety change trazadone 50mg qhs to scheduled for sleep. change librium 10 mg tid for etoh withdrawal and discontinue tomorrow. -CIWA protocol with as needed Ativan. -When necessary Ativan and Haldol for agitation/aggression. -NRT - nicotine patch -SW on board for discharge planning. Encouraged the patient to participate in milieu. Patient discharge tomorrow, still refusing rehab, wants outpatient MH and SUDHAKAR treatment instead. 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 Patient Condition at Discharge: Good Plan - Discharge Summary Discharge Rx Participant: No New Discharge Prescriptions: No Action Ergocalciferol [Vitamin D2 (1250 Mcg = 41406 Iu)] 1,250 mcg PO TUTH lisinopriL 40 mg PO DAILY Metoprolol Tartrate [Lopressor] 75 mg PO BID Clopidogrel [Plavix] 75 mg PO DAILY Atorvastatin [Lipitor] 40 mg PO DAILY Cyclobenzaprine [Flexeril] 10 mg PO DAILY PRN PRN Reason: Muscle Spasm ALPRAZolam [Xanax] 1 mg PO TID Discharge Medication List ALPRAZolam [Xanax] 1 mg PO TID 06/02/23 [History] Atorvastatin [Lipitor] 40 mg PO DAILY 06/02/23 [History] Clopidogrel [Plavix] 75 mg PO DAILY 06/02/23 [History] Cyclobenzaprine [Flexeril] 10 mg PO DAILY PRN 06/02/23 [History] Ergocalciferol [Vitamin D2 (1250 Mcg = 18048 Iu)] 1,250 mcg PO TUTH 06/02/23 [History] Metoprolol Tartrate [Lopressor] 75 mg PO BID 06/02/23 [History] lisinopriL 40 mg PO DAILY 06/02/23 [History] Follow up Appointment(s)/Referral(s): [facility] [Outside] - 1 Week Shell Bell MD [Primary Care Provider] - 1-2 days Activity/Diet/Wound Care/Special Instructions: Avoid the use of street drugs and alcohol. Take all medications as prescribed. When you are in need of refills on your medications, please contact your medical provider and/or outpatient psychiatrist/provider to have this done. Please go to your scheduled outpatient appointment for aftercare treatment. If symptoms return or become worse, call the crisis line at and/or go to the nearest emergency room for evaluation. National Suicide Hotline 988. Discharge/Stand Alone Forms: AA Meetings [place]
[2023-06-08] MEDS: SERTRALINE 50 MG TAB PO SCH (09:03)
[2023-06-08 09:30] VITALS: BP 146/87; PULSE 120
--- NOTE | 2023-06-14 11:55 | CDI ---
Documentation Clarification Form Date: 06/14/23 From: Ana Shen Admit Date: 06/03/2023 05:52:00 PM Patient Name: Braxton Méndez Visit Number: [id number] Discharge Date: 06/08/2023 12:57:00 PM ATTENTION: The Clinical Documentation Specialists (CDI) and [facility] Coding Staff appreciate your assistance in clarifying documentation. Please respond to the clarification below the line at the bottom and electronically sign. The CDI & [facility] Coding staff will review the response and follow-up if needed. Please note: Queries are made part of the Legal Health Record. If you have any questions, please contact the author of this message via ITS. Dr. Iggy Huitron, Your patient has an abnormal lab value: Sodium 133 (06/02). Please clarify if there is an additional diagnosis and/or clinical significance related to this value. History/Risk Factors: adjustment disorder w disturbance in emotions and conduct, alcohol use disorder, cocaine use, psychosis unspecified Clinical indicators: Sodium 133 Treatment: Sodium Chloride 0.9% 1000 ml IV 999 mls/hr Is there an additional diagnosis and/or clinical significance related to the above lab result/information? [ x ] Hyponatremia] [ ] No additional diagnosis/Not clinically significant [ ] Other, please specify [ ] Unable to determine MTDD
--- NOTE | 2023-06-14 11:58 | CDI ---
Documentation Clarification Form Date: 06/14/23 From: Ana Shen Admit Date: 06/03/2023 05:52:00 PM Patient Name: Braxton Méndez Visit Number: [id number] Discharge Date: 06/08/2023 12:57:00 PM ATTENTION: The Clinical Documentation Specialists (CDI) and [facility] Coding Staff appreciate your assistance in clarifying documentation. Please respond to the clarification below the line at the bottom and electronically sign. The CDI & [facility] Coding staff will review the response and follow-up if needed. Please note: Queries are made part of the Legal Health Record. If you have any questions, please contact the author of this message via ITS. Dr. Iggy Huitron, Your patient has an abnormal lab value: CR 174 (06/02). Please clarify if there is an additional diagnosis and/or clinical significance related to this value. History/Risk Factors: adjustment disorder w disturbance in emotions and conduct, alcohol use disorder, cocaine use, psychosis unspecified Clinical indicators: Sodium 133 Treatment: Sodium Chloride 0.9% 1000 ml IV 999 mls/hr Is there an additional diagnosis and/or clinical significance related to the above lab result/information? [ x ] Acute Kidney Injury [ ] No additional diagnosis/Not clinically significant [ ] Other, please specify [ ] Unable to determine MTDD
== END 2023-06-08 12:57 | disposition home or self-care (01) | DRG 760 ==
LOC: EC 21:36 → 3MHU 06-03 17:52
PROVIDERS: ADMIT Psychiatry & Neurology Psychiatry; ATTEND Psychiatry & Neurology Psychiatry
DX: F22 Delusional disorders (principal); N17.9 Acute kidney failure, unspecified; E87.1 Hypo-osmolality and hyponatremia; F32.5 Major depressive disorder, single episode, in full remission; E83.42 Hypomagnesemia; F14.90 Cocaine use, unspecified, uncomplicated; F41.0 Panic disorder [episodic paroxysmal anxiety]; F41.1 Generalized anxiety disorder; Z63.4 Disappearance and death of family member; Z79.02 Long term (current) use of antithrombotics/antiplatelets; Z82.3 Family history of stroke; Z86.73 Personal history of transient ischemic attack (TIA), and cerebral infarction without residual deficits; Z87.891 Personal history of nicotine dependence; Z11.52 Encounter for screening for COVID-19
CPT/HCPCS: 36415; 70450; 80048; 80053; 80306; 80320; 81001; 82075; 83036; 83735; 84443; 85025; 87636; 93005; 96365; 96372; 99285

== ENCOUNTER 2023-10-10 12:09 | Inpatient (IN) | payer OTHER ==
[2023-10-10 12:48] LABS: Basophils # (A) 0.1 k/uL (0-0.2); Basophils % (A) 1 %; Eosinophils # (A) 0.1 k/uL (0-0.7); Eosinophils % (A) 1 %; HCT 40.9 % (39.0-53.0); HGB 14.1 gm/dL (13.0-17.5); Lymphocytes # (A) 1.1 k/uL (1.0-4.8); Lymphocytes % (A) 8 %; MCH 32.6 pg (25.0-35.0); MCHC 34.4 g/dL (31.0-37.0); MCV 94.6 fL (80.0-100.0); Mean Platelet Volume 8.7; Monocytes # (A) 0.8 k/uL (0-1.0); Monocytes % (A) 6 %; Neutrophils # (A) 11.6 k/uL (1.3-7.7); Neutrophils % (A) 84 %; Platelet Count 364 k/uL (150-450); RBC 4.32 m/uL (4.30-5.90); RDW 13.9 % (11.5-15.5); WBC 13.8 k/uL (3.8-10.6)
[2023-10-10 12:56] LABS: ALT 17 U/L (4-49); African American GFR (CKD) >90 (>60 ml/min/1.73 sqM); Blood Urea Nitrogen 2 mg/dL (9-20); Calcium 7.5 mg/dL (8.4-10.2); Carbon Dioxide 35 mmol/L (22-30); Glucose 112 mg/dL (74-99); Non-African American GFR(CKD) >90 (>60 ml/min/1.73 sqM); Total Bilirubin 2.9 mg/dL (0.2-1.3)
[2023-10-10 13:05] LABS: NT-Pro-B-Type Natriuretic Pept 125 pg/mL
[2023-10-10 13:12] LABS: Partial Thromboplastin Time 35.5 sec (22.0-30.0)
--- NOTE | 2023-10-10 13:12 | XR ---
EXAMINATION TYPE: XR chest 2V DATE OF EXAM: 10/10/2023 COMPARISON: NONE HISTORY: Shortness of breath TECHNIQUE: Frontal and lateral views of the chest are obtained. FINDINGS: Scattered senescent parenchymal changes noted. No evidence for infiltrate. No evidence for atelectasis. Heart size is stable. Mediastinal structures are stable and grossly unremarkable. No evidence for hilar prominence. Degenerative changes dorsal spine. IMPRESSION: 1. No evidence for acute pulmonary disease.
[2023-10-10 13:30] LABS: AST 69 U/L (17-59); Albumin 3.2 g/dL (3.5-5.0); Chloride 75 mmol/L (98-107); Magnesium 1.3 mg/dL (1.6-2.3); Total Protein 6.7 g/dL (6.3-8.2)
[2023-10-10 13:31] LABS: Alkaline Phosphatase 73 U/L (38-126)
--- NOTE | 2023-10-10 13:31 | ED ---
Weakness HPI - General Chief complaint: Fall Stated complaint: Fall Time Seen by Provider: 10/10/23 12:17 Source: patient, EMS, RN notes reviewed Mode of arrival: EMS Limitations: physical limitation - History of Present Illness Initial comments: This is a 53-year-old male who presents to the emergency department for a fall and generalized weakness. Patient has reportedly been increasingly weak and not eating over the last few days. He called EMS to bring him to the hospital today for these complaints, and when he went to answer the door he tripped and fell backwards, hitting his head. He is on Plavix. Denies any loss of consciousness. States that his left upper leg has been painful and somewhat weak over the last few days as well. Patient also noted to have low oxygen saturation on room air ranging from 88 to 91%. He denies any shortness of breath. He was started on a nasal cannula. Patient used to consume large amounts of alcohol, however he states that he quit drinking 3 months ago when his mother . EMS did note multiple alcohol bottles in his house. MD Complaint: generalized weakness - Related Data Home Medications Medication Instructions Recorded Confirmed Atorvastatin [Lipitor] 40 mg PO DAILY 06/02/23 10/10/23 Clopidogrel [Plavix] 75 mg PO DAILY 06/02/23 10/10/23 Metoprolol Tartrate [Lopressor] 75 mg PO DAILY 06/02/23 10/10/23 ALPRAZolam [Xanax] 1 mg PO TID 10/10/23 10/10/23 Allergies Allergy/AdvReac Type Severity Reaction Status Date / Time No Known Allergies Allergy Verified 10/10/23 16:00 Review of Systems ROS Statement: Those systems with pertinent positive or pertinent negative responses have been documented in the HPI. ROS Other: All systems not noted in ROS Statement are negative. Past Medical History Past Medical History: CVA/TIA, Hyperlipidemia, Hypertension Additional Past Medical History / Comment(s): ETOH, diverticulitis History of Any Multi-Drug Resistant Organisms: None Reported Past Surgical History: Bowel Resection Additional Past Surgical History / Comment(s): 6 in of bowel removed. carotid artery surgery Past Anesthesia/Blood Transfusion Reactions: No Reported Reaction Past Psychological History: No Psychological Hx Reported Smoking Status: Former smoker, Vaper - Past Family History Mother Family Medical History: CVA/TIA General Exam Limitations: physical limitation General appearance: alert, in no apparent distress Head exam: Present: other (Hematoma to the back of the head. No overlying abrasions) Respiratory exam: Present: decreased breath sounds, prolonged expiratory Cardiovascular Exam: Present: regular rate, normal rhythm, normal heart sounds. Absent: systolic murmur, diastolic murmur, rubs, gallop, clicks GI/Abdominal exam: Present: soft, normal bowel sounds. Absent: distended, tenderness, guarding, rebound, rigid Neurological exam: Present: alert, oriented X3, CN II-XII intact Psychiatric exam: Present: normal affect, normal mood Skin exam: Present: warm, dry, intact, normal color. Absent: rash Course Vital Signs 10/10/23 10/10/23 10/10/23 12:11 12:25 15:56 Temperature 98.7 F 97.5 F L Pulse Rate 87 72 Respiratory 18 16 Rate Blood Pressure 123/78 126/81 O2 Sat by Pulse 91 L 96 Oximetry 10/10/23 10/10/23 10/10/23 16:56 18:00 20:00 Temperature 97.3 F L 98.3 F Pulse Rate 73 76 70 Respiratory 20 16 16 Rate Blood Pressure 126/84 136/96 O2 Sat by Pulse 96 97 93 L Oximetry 10/11/23 00:45 Temperature 98.2 F Pulse Rate 82 Respiratory 16 Rate Blood Pressure 121/74 O2 Sat by Pulse 97 Oximetry Medical Decision Making - Medical Decision Making This is a 53-year-old male presents emergency department for weakness and a fall. Was pt. sent in by a medical professional or institution? @ -No Did you speak to anyone other than the patient for history? @ -No Did you review nursing and triage notes? @ -Yes, and I agree, it is accurate with regards to the patient's symptoms. Were old charts reviewed? @ -No Differential Diagnosis? @ -Differential Weakness: Hypoglycemia, shock, sepsis, hyponatremia, anemia, infection, OK, ETOH, adverse medicine reaction, overdose, stroke, this is not meant to be an all-inclusive list. EKG interpreted by me (3pts min.)? @ -EKG interpreted by me demonstrating the following: Sinus rhythm. Ventr icular rate 80 bpm, OH interval 157 ms, QRS duration 95 ms, QTc 343 ms. X-rays interpreted by me (1pt min.)? @ -Chest x-ray obtained, my interpretation identifies no localized consolidations or infiltrates. CT interpreted by me (1pt min.)? @ -Computed tomography scan of the brain and c-spine obtained. My interpretation identifies no evidence of an acute intracranial hemorrhage, skull fracture, or cervical spine fracture. U/S interpreted by me (1pt. min.)? @ -Duplex ultrasound of the left lower extremity obtained. My interpretation identifies no evidence of a DVT. What testing was considered but not performed? (CT, X-rays, U/S, labs)? Why? @ -None What meds were considered but not given? Why? @ -None Did you discuss the management of the patient with other professionals? @ -Yes, Dr. Borges, who accepts the patient for admission. Did you reconcile home meds? @ -Yes Was smoking cessation discussed for >3mins.? @ -No Was critical care preformed (if so, how long)? @ -No Were there social determinants of health that impacted care today? How? (Homelessness, low income, unemployed, alcoholism, drug addiction, transportation, low edu. Level, literacy, decrease access to med. care, senior living, rehab)? @ -Alcoholism, potentially contributing to current electrolyte abnormalities. Was there de-escalation of care discussed even if they declined? (Discuss DNR or withdrawal of care, Hospice)? @ -No What co-morbidities impacted this encounter? (DM, HTN, Smoking, COPD, CAD, Cancer, CVA, Hep., AIDS, mental health diagnosis, sleep apnea, morbid obesity)? @ -HLD, HTN, alcohol abuse Was patient admitted / discharged? @ -Admitted. Lab work demonstrates leukocytosis, hyponatremia with a sodium of 125, hypokalemia with a potassium of 2.5, and hypomagnesemia with a magnesium of 1.3. Lactic acid elevated at 5.0. Bilirubin elevated at 2.9 with a mild elevation in AST, potentially related to patient's history of alcohol abuse. Currently denies any recent alcohol intake, however per EMS patient had a large amount of alcohol bottles all scattered all over his house. COVID, influenza, and RSV testing negative. Urinalysis negative for signs of infection. Chest x- ray reveals no acute process. Given the patient's fall, CT scan of the brain and C-spine was obtained. This revealed no acute process. Patient also noted left lower extremity pain and a duplex ultrasound was obtained revealing no evidence of a DVT or other acute process. Unclear if the patient has any notable infection, however given the leukocytosis and elevated lactic acid, blood cultures were obtained and he was started on ceftriaxone. 400 mg of magnesium oxide administered along with 40mEq of oral K-Dur and 20 mEq of IVPB potassium chloride. Maintenance fluids initiated as well. Consult placed for nephrology regarding hyponatremia and hypokalemia. Per ED attending request, repeat CMP and coags were ordered due to the multiple irregularities in the event it was related to being drawn off of a line. Results pending at the time of admission. Undiagnosed new problem with uncertain prognosis? @ -None Drug Therapy requiring intensive monitoring for toxicity (Heparin, Nitro, Insulin, Cardizem)? @ -None Were any procedures done? @ -None Diagnosis/symptom? @ -Weakness, hyponatremia, hypokalemia, lactic acidosis Acute, or Chronic, or Acute on Chronic? @ -Acute Uncomplicated (without systemic symptoms) or Complicated (systemic symptoms)? @ -Complicated Side effects of treatment? @ -None Exacerbation, Progression, or Severe Exacerbation] @ -Not applicable Poses a threat to life or bodily function? @ -Yes This case was discussed in detail with the attending ED physician, Dr. Santos. Presentation, findings, and treatment plan discussed in detail as well. - Lab Data Result diagrams: 10/10/23 12:21 10/10/23 22:23 Lab Results 10/10/23 10/10/23 10/10/23 Range/Units 12:21 12:21 12:21 WBC 13.8 H (3.8-10.6) k/uL RBC 4.32 (4.30-5.90) m/uL Hgb 14.1 (13.0-17.5) gm/dL Hct 40.9 (39.0-53.0) % MCV 94.6 (80.0-100.0) fL MCH 32.6 (25.0-35.0) pg MCHC 34.4 (31.0-37.0) g/dL RDW 13.9 (11.5-15.5) % Plt Count 364 (150-450) k/uL MPV 8.7 Neutrophils % 84 % Lymphocytes % 8 % Monocytes % 6 % Eosinophils % 1 % Basophils % 1 % Neutrophils # 11.6 H (1.3-7.7) k/uL Lymphocytes # 1.1 (1.0-4.8) k/uL Monocytes # 0.8 (0-1.0) k/uL Eosinophils # 0.1 (0-0.7) k/uL Basophils # 0.1 (0-0.2) k/uL PT 20.0 H (10.0-12.5) sec INR 2.0 H (<1.2) APTT 35.5 H (22.0-30.0) sec Sodium 125 L (137-145) mmol/L Potassium 2.5 L* (3.5-5.1) mmol/L Chloride 75 L (98-107) mmol/L Carbon Dioxide 35 H (22-30) mmol/L Anion Gap 15 mmol/L BUN 2 L (9-20) mg/dL Creatinine 0.55 L (0.66-1.25) mg/dL Est GFR (CKD-EPI)AfAm >90 (>60 ml/min/1.73 sqM) Est GFR (CKD-EPI)NonAf >90 (>60 ml/min/1.73 sqM) Glucose 112 H (74-99) mg/dL Lactic Ac Sepsis Rflx Plasma Lactic Acid Luan (0.7-2.0) mmol/L Calcium 7.5 L (8.4-10.2) mg/dL Magnesium 1.3 L (1.6-2.3) mg/dL Total Bilirubin 2.9 H (0.2-1.3) mg/dL AST 69 H (17-59) U/L ALT 17 (4-49) U/L Alkaline Phosphatase 73 (38-126) U/L Troponin I (0.000-0.034) ng/mL NT-Pro-B Natriuret Pep 125 pg/mL Total Protein 6.7 (6.3-8.2) g/dL Albumin 3.2 L (3.5-5.0) g/dL Urine Color Urine Appearance (Clear) Urine pH (5.0-8.0) Ur Specific [place] (1.001-1.035) Urine Protein (Negative) Urine Glucose (UA) (Negative) Urine Ketones (Negative) Urine Blood (Negative) Urine Nitrite (Negative) Urine Bilirubin (Negative) Urine Urobilinogen (<2.0) mg/dL Ur Leukocyte Esterase (Negative) Urine Opiates Screen (NotDetected) Ur Oxycodone Screen (NotDetected) Urine Methadone Screen (NotDetected) Ur Barbiturates Screen (NotDetected) U Tricyclic Antidepress (NotDetected) Ur Phencyclidine Scrn (NotDetected) Ur Amphetamines Screen (NotDetected) U Methamphetamines Scrn (NotDetected) U Benzodiazepines Scrn (NotDetected) Urine Cocaine Screen (NotDetected) U Marijuana (THC) Screen (NotDetected) Influenza Type A (PCR) (Not Detectd) Influenza Type B (PCR) (Not Detectd) RSV (PCR) (Not Detectd) SARS-CoV-2 (PCR) (Not Detectd) 10/10/23 10/10/23 10/10/23 Range/Units 12:21 12:21 12:40 WBC (3.8-10.6) k/uL RBC (4.30-5.90) m/uL Hgb (13.0-17.5) gm/dL Hct (39.0-53.0) % MCV (80.0-100.0) fL MCH (25.0-35.0) pg MCHC (31.0-37.0) g/dL RDW (11.5-15.5) % Plt Count (150-450) k/uL MPV Neutrophils % % Lymphocytes % % Monocytes % % Eosinophils % % Basophils % % Neutrophils # (1.3-7.7) k/uL Lymphocytes # (1.0-4.8) k/uL Monocytes # (0-1.0) k/uL Eosinophils # (0-0.7) k/uL Basophils # (0-0.2) k/uL PT (10.0-12.5) sec INR (<1.2) APTT (22.0-30.0) sec Sodium (137-145) mmol/L Potassium (3.5-5.1) mmol/L Chloride (98-107) mmol/L Carbon Dioxide (22-30) mmol/L Anion Gap mmol/L BUN (9-20) mg/dL Creatinine (0.66-1.25) mg/dL Est GFR (CKD-EPI)AfAm (>60 ml/min/1.73 sqM) Est GFR (CKD-EPI)NonAf (>60 ml/min/1.73 sqM) Glucose (74-99) mg/dL Lactic Ac Sepsis Rflx Plasma Lactic Acid Luan 5.0 H* (0.7-2.0) mmol/L Calcium (8.4-10.2) mg/dL Magnesium (1.6-2.3) mg/dL Total Bilirubin (0.2-1.3) mg/dL AST (17-59) U/L ALT (4-49) U/L Alkaline Phosphatase (38-126) U/L Troponin I <0.012 (0.000-0.034) ng/mL NT-Pro-B Natriuret Pep pg/mL Total Protein (6.3-8.2) g/dL Albumin (3.5-5.0) g/dL Urine Color Yellow Urine Appearance Clear (Clear) Urine pH 6.5 (5.0-8.0) Ur Specific [place] 1.009 (1.001-1.035) Urine Protein Negative (Negative) Urine Glucose (UA) Negative (Negative) Urine Ketones Negative (Negative) Urine Blood Negative (Negative) Urine Nitrite Negative (Negative) Urine Bilirubin Negative (Negative) Urine Urobilinogen 12.0 (<2.0) mg/dL Ur Leukocyte Esterase Negative (Negative) Urine Opiates Screen (NotDetected) Ur Oxycodone Screen (NotDetected) Urine Methadone Screen (NotDetected) Ur Barbiturates Screen (NotDetected) U Tricyclic Antidepress (NotDetected) Ur Phencyclidine Scrn (NotDetected) Ur Amphetamines Screen (NotDetected) U Methamphetamines Scrn (NotDetected) U Benzodiazepines Scrn (NotDetected) Urine Cocaine Screen (NotDetected) U Marijuana (THC) Screen (NotDetected) Influenza Type A (PCR) (Not Detectd) Influenza Type B (PCR) (Not Detectd) RSV (PCR) (Not Detectd) SARS-CoV-2 (PCR) (Not Detectd) 10/10/23 10/10/23 10/10/23 Range/Units 12:40 13:18 14:29 WBC (3.8-10.6) k/uL RBC (4.30-5.90) m/uL Hgb (13.0-17.5) gm/dL Hct (39.0-53.0) % MCV (80.0-100.0) fL MCH (25.0-35.0) pg MCHC (31.0-37.0) g/dL RDW (11.5-15.5) % Plt Count (150-450) k/uL MPV Neutrophils % % Lymphocytes % % Monocytes % % Eosinophils % % Basophils % % Neutrophils # (1.3-7.7) k/uL Lymphocytes # (1.0-4.8) k/uL Monocytes # (0-1.0) k/uL Eosinophils # (0-0.7) k/uL Basophils # (0-0.2) k/uL PT (10.0-12.5) sec INR (<1.2) APTT (22.0-30.0) sec Sodium (137-145) mmol/L Potassium (3.5-5.1) mmol/L Chloride (98-107) mmol/L Carbon Dioxide (22-30) mmol/L Anion Gap mmol/L BUN (9-20) mg/dL Creatinine (0.66-1.25) mg/dL Est GFR (CKD-EPI)AfAm (>60 ml/min/1.73 sqM) Est GFR (CKD-EPI)NonAf (>60 ml/min/1.73 sqM) Glucose (74-99) mg/dL Lactic Ac Sepsis Rflx Y Plasma Lactic Acid Luan (0.7-2.0) mmol/L Calcium (8.4-10.2) mg/dL Magnesium (1.6-2.3) mg/dL Total Bilirubin (0.2-1.3) mg/dL AST (17-59) U/L ALT (4-49) U/L Alkaline Phosphatase (38-126) U/L Troponin I (0.000-0.034) ng/mL NT-Pro-B Natriuret Pep pg/mL Total Protein (6.3-8.2) g/dL Albumin (3.5-5.0) g/dL Urine Color Urine Appearance (Clear) Urine pH (5.0-8.0) Ur Specific [place] (1.001-1.035) Urine Protein (Negative) Urine Glucose (UA) (Negative) Urine Ketones (Negative) Urine Blood (Negative) Urine Nitrite (Negative) Urine Bilirubin (Negative) Urine Urobilinogen (<2.0) mg/dL Ur Leukocyte Esterase (Negative) Urine Opiates Screen Not Detected (NotDetected) Ur Oxycodone Screen Not Detected (NotDetected) Urine Methadone Screen Not Detected (NotDetected) Ur Barbiturates Screen Not Detected (NotDetected) U Tricyclic Antidepress Not Detected (NotDetected) Ur Phencyclidine Scrn Not Detected (NotDetected) Ur Amphetamines Screen Not Detected (NotDetected) U Methamphetamines Scrn Not Detected (NotDetected) U Benzodiazepines Scrn Detected H (NotDetected) Urine Cocaine Screen Not Detected (NotDetected) U Marijuana (THC) Screen Not Detected (NotDetected) Influenza Type A (PCR) Not Detected (Not Detectd) Influenza Type B (PCR) Not Detected (Not Detectd) RSV (PCR) Not Detected (Not Detectd) SARS-CoV-2 (PCR) Not Detected (Not Detectd) - Radiology Data Radiology results: report reviewed, image reviewed Disposition Clinical Impression: Weakness, Hypokalemia, Hyponatremia, Hypomagnesemia, Hypoxia, Lactic acidosis Disposition: ADMITTED IP TO THIS HOSP
[2023-10-10 13:35] LABS: Anion Gap 15 mmol/L; Sodium 125 mmol/L (137-145)
[2023-10-10 13:37] LABS: Potassium 2.5 mmol/L (3.5-5.1)
--- NOTE | 2023-10-10 13:56 | CT ---
EXAMINATION TYPE: CT brain cspine wo con DATE OF EXAM: 10/10/2023 COMPARISON: Brain 06/02/2023 HISTORY: 53-year-old male with pain after Fall CT DLP: 1624 mGycm Automated exposure control for dose reduction was used. Technique: Examination of the head was done in axial plane without intravenous contrast. Coronal and sagittal reconstructions performed. CT of the cervical spine was obtained in axial plane without intravenous injection of contrast mater ial. Coronal and sagittal reformatted images were obtained from the axial views for evaluation of f ractures, spinal alignment and canal. FINDINGS: Head: There is no evidence of acute intracranial hemorrhage, acute ischemic changes, mass, mass-effect, or extra-axial fluid collection. There is no effacement of cerebral sulci or basal subarachnoid cister ns. There is no hydrocephalus. There is no midline shift. Roth-white matter distinction is preserv ed. Moderate lobulated mucosal thickening floor of the left maxillary sinus. Leftward nasal septal deviat ion. Mastoid air cells well pneumatized. Orbits and globes are intact. No calvarial fracture seen. Cervical spine: No craniocervical junction abnormality, predental space widening, or prevertebral soft tissue swellin g. Degenerative change C1 dens articulation. Moderate multilevel discogenic endplate degenerative change as well as facet and uncovertebral joint arthropathy especially mid to lower cervical spine. Straightening of the normal cervical lordosis. Degenerative trace grade 1 anterolisthesis C5-C6. Disc osteophyte complex at C5-C6 and C6-C7 likely c ontribute to mild narrowing of the spinal canal. Detailed assessment limited due to patient's size and artifacts. No fracture is identified. Severe left neuroforaminal stenosis C3-C4, moderate to severe on both sides at C5-C6 and mild to mode rate on both sides at C6-C7. Sagittal and coronal reformatted images confirm above findings. COMBINED IMPRESSION: 1. No acute intracranial abnormality seen. 2. Moderate multilevel spondylotic change of the cervical spine. Degenerative trace grade 1 anterolis thesis C5-C6. No acute fracture seen.
--- NOTE | 2023-10-10 14:20 | US ---
EXAMINATION TYPE: US venous doppler duplex LE LT DATE OF EXAM: 10/10/2023 1:45 PM COMPARISON: NONE CLINICAL INDICATION: Male, 53 years old with history of Pain; Pt states left leg pain and weakness SIDE PERFORMED: Left TECHNIQUE: The lower extremity deep venous system is examined utilizing real time linear array sonog torrie with graded compression, doppler sonography and color-flow sonography. VESSELS IMAGED: Common Femoral Vein Deep Femoral Vein Greater Saphenous Vein * Femoral Vein Popliteal Vein Small Saphenous Vein * Proximal Calf Veins (* superficial vessels) Left Leg: Negative for DVT IMPRESSION: Grayscale, color doppler, spectral doppler imaging performed of the deep veins of the lo wer extremities. There is normal flow, compressibility, vascular waveforms.
[2023-10-10] MEDS: SODIUM CHLORIDE 0.9% 2,000 ML IV STA (14:25)
[2023-10-10] MEDS: MAGNESIUM OXIDE 400 MG TAB PO STA (14:45)
[2023-10-10] MEDS: POTASSIUM CHLORIDE ER 20 MEQ TAB.ER PO STA ×2 (14:45→19:58)
[2023-10-10] MEDS: POTASSIUM CHLORIDE 20 MEQ in WATER FOR INJECTION 1 100ML.BAG IVPB STA (15:49)
[2023-10-10 15:51] LABS: Appearance,Urine Clear (Clear); Bilirubin,Urine Negative (Negative); Blood,Urine Negative (Negative); Color,Urine Yellow; Glucose,Urine (UA) Negative (Negative); Ketones,Urine Negative (Negative); Leukocyte Esterase,Urine Negative (Negative); Nitrite,Urine Negative (Negative); PH, Urine 6.5 (5.0-8.0); Protein,Urine Negative (Negative); Specific Gravity,Urine 1.009 (1.001-1.035)
[2023-10-10] MEDS: SODIUM CHLORIDE 0.9% 1,000 ML IV STA (15:56)
[2023-10-10 16:03] LABS: INR 2.1 (<1.2); Prothrombin Time 20.7 sec (10.0-12.5)
[2023-10-10 16:09] LABS: Amphetamine Screen,Urine Not Detected (NotDetected); Barbiturate Screen,Urine Not Detected (NotDetected); Benzodiazepines Screen,Urine Detected (NotDetected); Cocaine Screen,Urine Not Detected (NotDetected); Methadone Screen, Urine Not Detected (NotDetected); Opiate Screen,Urine Not Detected (NotDetected); Oxycodone Screen, Urine Not Detected (NotDetected); Phencyclidine Screen,Urine Not Detected (NotDetected); Tricyclic Antidepressant,Urine Not Detected (NotDetected); Urn Cannabinoid Scrn Not Detected (NotDetected)
[2023-10-10] MEDS ORDERED: NALOXONE 0.4 MG/ML 1 ML VIAL IV PRN (16:50)
[2023-10-10] MEDS ORDERED: ACETAMINOPHEN TAB 325 MG TAB PO PRN (16:50)
[2023-10-10] MEDS ORDERED: KETOROLAC 15 MG/ML 1 ML VIAL IVP PRN (16:50)
[2023-10-10] MEDS ORDERED: MORPHINE SULFATE 4 MG/ML SYRINGE IV PRN (16:50)
[2023-10-10 17:02] LABS: Alcohol <10 mg/dL; Bilirubin, Conjugated 0.1 mg/dL (0.0-0.3); Bilirubin, Delta 1.4 mg/dL (0.0-0.2); Bilirubin,Unconjugated 1.2 mg/dL (0.0-1.1); Total Bilirubin 2.7 mg/dL (0.2-1.3)
[2023-10-10 18:49] LABS: ALT 15 U/L (4-49); AST 58 U/L (17-59); African American GFR (CKD) >90 (>60 ml/min/1.73 sqM); Albumin 2.9 g/dL (3.5-5.0); Alkaline Phosphatase 89 U/L (38-126); Anion Gap 9 mmol/L; Blood Urea Nitrogen 3 mg/dL (9-20); Calcium 7.6 mg/dL (8.4-10.2); Carbon Dioxide 38 mmol/L (22-30); Chloride 80 mmol/L (98-107); Glucose 114 mg/dL (74-99); Non-African American GFR(CKD) >90 (>60 ml/min/1.73 sqM); Sodium 127 mmol/L (137-145); Total Bilirubin 2.7 mg/dL (0.2-1.3); Total Protein 6.4 g/dL (6.3-8.2)
[2023-10-10] MEDS: POTASSIUM CHLORIDE ER 20 MEQ TAB.ER PO ONE (21:03)
[2023-10-10] MEDS: ALPRAZolam 1 MG TAB PO SCH (21:03)
[2023-10-11] MEDS: POTASSIUM CHLORIDE ER 20 MEQ TAB.ER PO SCH ×3 (00:39→16:18)
[2023-10-11] MEDS: CLOPIDOGREL 75 MG TAB PO SCH (08:49)
[2023-10-11] MEDS: METOPROLOL TARTRATE 25 MG TAB PO SCH (08:49)
[2023-10-11] MEDS: ATORVASTATIN 40 MG TAB PO SCH (08:50)
[2023-10-11] MEDS ORDERED: ENOXAPARIN 40 MG/0.4 ML SYRINGE SQ SCH (10:30)
[2023-10-11] MEDS: ONDANSETRON 4 MG/2 ML VIAL IVP PRN (11:16)
[2023-10-11] MEDS: LACTATED RINGERS 1,000 ML IV SCH (11:17)
[2023-10-11] MEDS: CALCIUM CARBONATE 500 MG CHEWABLE PO SCH (11:18)
[2023-10-11] MEDS: PANTOPRAZOLE 40 MG TABLET PO SCH (11:22)
--- NOTE | 2023-10-11 12:30 | P.NPCON ---
History of Present Illness - Reason for Consult hyponatremia - History of Present Illness patient is a 53-year-old male who was admitted to the hospital with complaints of increased weakness and inability to climb stairs. He also tripped and fell at home hitting his head. labs showed serum potassium at 2-2.5 mg/L. Magnesium was low at 1.3. Serum creatinine at 0.6 mg/dL. previous potassium 4.0 on 06/05/2023. Patient denies use of any diuretics. BP is not low. History of EtOH abuse but patient denies having had significant alcohol intake recently. Serum alcohol was less than 10. Urine drug screen positive for benzodiazepines. He did complain of nausea and decreased oral intake for about a week. Patient did have some diarrhea but none after admission. Review of Systems as per HPI Past Medical History Past Medical History: CVA/TIA, Hyperlipidemia, Hypertension Additional Past Medical History / Comment(s): ETOH, diverticulitis History of Any Multi-Drug Resistant Organisms: None Reported Past Surgical History: Bowel Resection Additional Past Surgical History / Comment(s): 6 in of bowel removed. carotid artery surgery Past Anesthesia/Blood Transfusion Reactions: No Reported Reaction Past Psychological History: No Psychological Hx Reported Smoking Status: Former smoker, Vaper - Past Family History Mother Family Medical History: CVA/TIA Medications and Allergies Home Medications Medication Instructions Recorded Confirmed Type Atorvastatin [Lipitor] 40 mg PO DAILY 06/02/23 10/10/23 History Clopidogrel [Plavix] 75 mg PO DAILY 06/02/23 10/10/23 History Metoprolol Tartrate [Lopressor] 75 mg PO DAILY 06/02/23 10/10/23 History ALPRAZolam [Xanax] 1 mg PO TID 10/10/23 10/10/23 History Allergies Allergy/AdvReac Type Severity Reaction Status Date / Time No Known Allergies Allergy Verified 10/10/23 16:00 Physical Exam Vitals: Vital Signs Temp Pulse Pulse Resp BP BP Pulse Ox 10/11/23 11:30 98.3 F 82 18 114/74 91 L 10/11/23 07:01 99.0 F 87 18 131/89 92 L 10/11/23 01:39 98.3 F 18 153/98 10/11/23 01:21 98.3 F 88 18 153/98 92 L 10/11/23 00:45 98.2 F 82 16 121/74 97 10/10/23 20:00 70 16 136/96 93 L 10/10/23 18:00 98.3 F 76 16 126/84 97 10/10/23 16:56 97.3 F L 73 20 96 10/10/23 15:56 97.5 F L 72 16 126/81 10/10/23 12:25 96 Intake and Output 10/10/23 10/11/23 10/11/23 22:59 06:59 14:59 Other: Weight 108.862 kg patient is awake, comfortable, no acute distress. Alert oriented 3. Examination of the heart S1 and S2 Examination of the lungs bilateral breath sounds are heard Abdomen is soft nontender Examination of lower extremity shows no significant edema. Multiple tattoos noted in the arms. 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 Hypokalemia with no clear-cut etiology. Patient denies any significant diarrhea or vomiting. He has had poor oral intake which may be contributing to the hypokalemia. Blood pressure is elevated therefore I will check serum aldosterone and renin level. TSH will be ordered as well. magnesium was low at 1.3 and has been replaced. 2.generalized weakness secondary to hypokalemia 3. Dyslipidemia maintained on Lipitor. 4. History of EtOH abuse with no recent intake. Serum alcohol level less than 10 this admission. 5. Hyponatremia, hypovolemic and associated with decreased oral intake Plan: check random urine potassium Check TSH Check serum aldosterone and renin levels. Replace potassium aggressively Repeat labs in a.m. Check CK level Thank you for the consultation. We will continue to follow the patient with you during his hospitalization.
[2023-10-11 14:40] LABS: Potassium 2.9 mmol/L (3.5-5.1)
--- NOTE | 2023-10-11 16:41 | P.HPIM ---
History of Present Illness H&P Date: 10/11/23 Chief Complaint: Weakness This is a 53-year-old patient, follows with Dr. Shell Bell. Patient had been drinking significant alcohol up to 3 months ago. When his mother he decided to stop drinking. For last 3 months he is not been able to eat well. Vomiting occasionally. Weak and tired. He decided to call the EMS. When he went to open the door he fell backwards hitting his head. Never passed out. No other fever and chills. No diarrhea. Intermittently vomiting. Was drinking quite a bit prior to stopping 3 months ago. Review of systems: GEN.: Tired decreased appetite weak EYES: None HEENT: None NECK: None RESPIRATORY: None CARDIOVASCULAR: None GASTROINTESTINAL: [Nausea vomiting GENITOURINARY: None MUSCULOSKELETAL: Muscle weakness e LYMPHATICS: None HEMATOLOGICAL: None PSYCHIATRY: None NEUROLOGICAL: None Social history: Lives alone. Was drinking heavy alcohol. Up to 3 months ago. Smoked on and off for 30 years stopped about 5 years ago. Currently not employed Physical examination: VITAL SIGNS: 99, 87, 18, 131/89, 92% on 2 L GENERAL: BMI 34.4, laying in bed tired vomiting. Unkempt EYES: Pupils equal. Conjunctiva cecy l. HEENT: External appearance of nose and ears normal, oral cavity grossly normal. NECK: JVD not raised; masses not palpable. HEART: First and second heart sounds are normal; no edema. LUNGS: Respiratory rate normal; clear to auscultation. ABDOMEN: Soft, nontender, liver spleen not palpable, no masses palpable. PSYCH: Alert and oriented x3; mood and affect tired anxious l. MUSCULOSKELETAL:No Clubbing/cyanosis;muscles-grossly intact NEUROLOGICAL: Cranial nerves grossly intact; no facial asymmetry, power and sensation grossly intact. LYMPHATICS: No lymph nodes palpable in the axilla and neck INVESTIGATIONS, reviewed in the clinical context: October 10: Potassium 2.6 TSH 3.7 October 09: Potassium 2 bicarb 38 BUN 3 creatinine 0.6 lactic acid 5 calcium 7.6 total bilirubin 2.7 sodium 125 creatinine 0.55 Urine drug screen positive for benzodiazepine EKG tracing personally reviewed by me-normal sinus rhythm's. Some ST/T Wave changes. Venous Doppler left leg: Negative for DVT Chest x-ray film personally reviewed by me-unremarkable UA: Negative Assessment and plan: -Acute severe myopathy from multiple electrolyte abnormalities including severe hypokalemia Replace electrolytes Hold Lipitor -Severe hypokalemia from persistent vomiting Telemetry. Aggressive potassium replacement -Hypomagnesemia Magnesium oxide 4 mg 3 times daily -Severe hyponatremia hypovolemia from poor oral intake Lactated Ringer's -Lactic acidosis, secondary to poor oral intake and vomiting -Normal coagulopathy. Possible underlying liver disease Add vitamin K. -Check for liver disease with ultrasound given history of alcoholism up to 3 months ago Supplement thiamine -Acute medical debility from electrolyte abnormalities poor oral intake PT OT -Full code Past Medical History Past Medical History: CVA/TIA, Hyperlipidemia, Hypertension Additional Past Medical History / Comment(s): ETOH, diverticulitis History of Any Multi-Drug Resistant Organisms: None Reported Past Surgical History: Bowel Resection Additional Past Surgical History / Comment(s): 6 in of bowel removed. carotid artery surgery Past Anesthesia/Blood Transfusion Reactions: No Reported Reaction Past Psychological History: No Psychological Hx Reported Smoking Status: Former smoker, Vaper - Past Family History Mother Family Medical History: CVA/TIA Medications and Allergies Home Medications Medication Instructions Recorded Confirmed Type Atorvastatin [Lipitor] 40 mg PO DAILY 06/02/23 10/10/23 History Clopidogrel [Plavix] 75 mg PO DAILY 06/02/23 10/10/23 History Metoprolol Tartrate [Lopressor] 75 mg PO DAILY 06/02/23 10/10/23 History ALPRAZolam [Xanax] 1 mg PO TID 10/10/23 10/10/23 History Allergies Allergy/AdvReac Type Severity Reaction Status Date / Time No Known Allergies Allergy Verified 10/10/23 16:00 Physical Exam Vitals: Vital Signs Temp Pulse Pulse Resp BP BP Pulse Ox 10/11/23 07:01 99.0 F 87 18 131/89 92 L 10/11/23 01:39 98.3 F 18 153/98 10/11/23 01:21 98.3 F 88 18 153/98 92 L 10/11/23 00:45 98.2 F 82 16 121/74 97 10/10/23 20:00 70 16 136/96 93 L 10/10/23 18:00 98.3 F 76 16 126/84 97 10/10/23 16:56 97.3 F L 73 20 96 10/10/23 15:56 97.5 F L 72 16 126/81 10/10/23 12:25 96 10/10/23 12:11 98.7 F 87 18 123/78 91 L Intake and Output 10/10/23 10/11/23 10/11/23 22:59 06:59 14:59 Other: Weight 108.862 kg Results CBC & Chem 7: 10/10/23 12:21 10/11/23 14:05 Labs: Abnormal Lab Results - Last 24 Hours (Table) 10/10/23 10/10/23 10/10/23 Range/Units 12:21 12:21 12:21 WBC 13.8 H (3.8-10.6) k/uL Neutrophils # 11.6 H (1.3-7.7) k/uL PT 20.0 H (10.0-12.5) sec INR 2.0 H (<1.2) APTT 35.5 H (22.0-30.0) sec Sodium 125 L (137-145) mmol/L Potassium 2.5 L* (3.5-5.1) mmol/L Chloride 75 L (98-107) mmol/L Carbon Dioxide 35 H (22-30) mmol/L BUN 2 L (9-20) mg/dL Creatinine 0.55 L (0.66-1.25) mg/dL Glucose 112 H (74-99) mg/dL Plasma Lactic Acid Luan (0.7-2.0) mmol/L Calcium 7.5 L (8.4-10.2) mg/dL Magnesium 1.3 L (1.6-2.3) mg/dL Total Bilirubin 2.9 H (0.2-1.3) mg/dL Unconjugated Bilirubin (0.0-1.1) mg/dL Delta Bilirubin (0.0-0.2) mg/dL AST 69 H (17-59) U/L Albumin 3.2 L (3.5-5.0) g/dL Procalcitonin (0.02-0.09) ng/mL U Benzodiazepines Scrn (NotDetected) 10/10/23 10/10/23 10/10/23 Range/Units 12:21 14:29 15:05 WBC (3.8-10.6) k/uL Neutrophils # (1.3-7.7) k/uL PT 20.7 H (10.0-12.5) sec INR 2.1 H (<1.2) APTT 35.0 H (22.0-30.0) sec Sodium (137-145) mmol/L Potassium (3.5-5.1) mmol/L Chloride (98-107) mmol/L Carbon Dioxide (22-30) mmol/L BUN (9-20) mg/dL Creatinine (0.66-1.25) mg/dL Glucose (74-99) mg/dL Plasma Lactic Acid Luan 5.0 H* (0.7-2.0) mmol/L Calcium (8.4-10.2) mg/dL Magnesium (1.6-2.3) mg/dL Total Bilirubin (0.2-1.3) mg/dL Unconjugated Bilirubin (0.0-1.1) mg/dL Delta Bilirubin (0.0-0.2) mg/dL AST (17-59) U/L Albumin (3.5-5.0) g/dL Procalcitonin (0.02-0.09) ng/mL U Benzodiazepines Scrn Detected H (NotDetected) 10/10/23 10/10/23 10/10/23 Range/Units 15:15 15:15 15:40 WBC (3.8-10.6) k/uL Neutrophils # (1.3-7.7) k/uL PT (10.0-12.5) sec INR (<1.2) APTT (22.0-30.0) sec Sodium (137-145) mmol/L Potassium (3.5-5.1) mmol/L Chloride (98-107) mmol/L Carbon Dioxide (22-30) mmol/L BUN (9-20) mg/dL Creatinine (0.66-1.25) mg/dL Glucose (74-99) mg/dL Plasma Lactic Acid Luan 2.8 H* (0.7-2.0) mmol/L Calcium (8.4-10.2) mg/dL Magnesium (1.6-2.3) mg/dL Total Bilirubin 2.7 H (0.2-1.3) mg/dL Unconjugated Bilirubin 1.2 H (0.0-1.1) mg/dL Delta Bilirubin 1.4 H (0.0-0.2) mg/dL AST (17-59) U/L Albumin (3.5-5.0) g/dL Procalcitonin 0.19 H (0.02-0.09) ng/mL U Benzodiazepines Scrn (NotDetected) 10/10/23 10/10/23 10/10/23 Range/Units 16:49 21:20 22:23 WBC (3.8-10.6) k/uL Neutrophils # (1.3-7.7) k/uL PT (10.0-12.5) sec INR (<1.2) APTT (22.0-30.0) sec Sodium 127 L (137-145) mmol/L Potassium 2.0 L* 2.2 L* 2.2 L* (3.5-5.1) mmol/L Chloride 80 L (98-107) mmol/L Carbon Dioxide 38 H (22-30) mmol/L BUN 3 L (9-20) mg/dL Creatinine 0.60 L (0.66-1.25) mg/dL Glucose 114 H (74-99) mg/dL Plasma Lactic Acid Luan (0.7-2.0) mmol/L Calcium 7.6 L (8.4-10.2) mg/dL Magnesium (1.6-2.3) mg/dL Total Bilirubin 2.7 H (0.2-1.3) mg/dL Unconjugated Bilirubin (0.0-1.1) mg/dL Delta Bilirubin (0.0-0.2) mg/dL AST (17-59) U/L Albumin 2.9 L (3.5-5.0) g/dL Procalcitonin (0.02-0.09) ng/mL U Benzodiazepines Scrn (NotDetected) 10/11/23 Range/Units 06:45 WBC (3.8-10.6) k/uL Neutrophils # (1.3-7.7) k/uL PT (10.0-12.5) sec INR (<1.2) APTT (22.0-30.0) sec Sodium (137-145) mmol/L Potassium 2.6 L* (3.5-5.1) mmol/L Chloride (98-107) mmol/L Carbon Dioxide (22-30) mmol/L BUN (9-20) mg/dL Creatinine (0.66-1.25) mg/dL Glucose (74-99) mg/dL Plasma Lactic Acid Luan (0.7-2.0) mmol/L Calcium (8.4-10.2) mg/dL Magnesium (1.6-2.3) mg/dL Total Bilirubin (0.2-1.3) mg/dL Unconjugated Bilirubin (0.0-1.1) mg/dL Delta Bilirubin (0.0-0.2) mg/dL AST (17-59) U/L Albumin (3.5-5.0) g/dL Procalcitonin (0.02-0.09) ng/mL U Benzodiazepines Scrn (NotDetected)
[2023-10-11] MEDS: THIAMINE 100 MG TAB PO SCH (17:21)
[2023-10-11] MEDS: MULTIVITAMINS, THERA 1 EACH TAB PO SCH (17:21)
[2023-10-11] MEDS: MAGNESIUM OXIDE 400 MG TAB PO SCH (17:21)
[2023-10-11] MEDS: PHYTONADIONE ORAL 5 MG/5 ML ORAL.SYRG PO SCH (17:22)
[2023-10-11] MEDS: POTASSIUM CHLORIDE ER 20 MEQ TAB.ER PO STA (21:28)
[2023-10-11] MEDS: METOPROLOL TARTRATE 50 MG TAB PO SCH (21:28)
--- NOTE | 2023-10-12 07:35 | US ---
EXAMINATION TYPE: US abdomen limited DATE OF EXAM: 10/12/2023 COMPARISON: NONE CLINICAL INDICATION: Male, 53 years old with history of Evaluate for alcohol liver disease; liver dis ease TECHNIQUE: Multiple sonographic images of the right upper quadrant are obtained. FINDINGS: EXAM MEASUREMENTS: Liver Length: 19.0 cm Gallbladder Wall: 0.25 cm CBD: 0.5 cm Right Kidney: 13.5 cm CLASSER NOTES: Pancreas: Obscured by bowel gas Liver: Enlarged, Increased attenuation, decreased visualization of vessels suggestive of fatty infil trate, free fluid noted around left lobe and adjacent to GB Gallbladder: wnl, wall at upper limits Evidence for sonographic Carlton's sign: No CBD: wnl Right Kidney: No hydronephrosis or masses seen exam limited by bowel gas, body habitus, and attenuation from the liver IMPRESSION: 1 hepatomegaly. 2. Underlying hepatic steatosis.
[2023-10-12 07:48] LABS: Ionized Calcium 4.5 mg/dL (4.5-5.3)
[2023-10-12 08:03] LABS: African American GFR (CKD) >90 (>60 ml/min/1.73 sqM); Anion Gap 6 mmol/L; Blood Urea Nitrogen <2 mg/dL (9-20); Calcium 8.2 mg/dL (8.4-10.2); Carbon Dioxide 31 mmol/L (22-30); Chloride 97 mmol/L (98-107); Glucose 83 mg/dL (74-99); Non-African American GFR(CKD) >90 (>60 ml/min/1.73 sqM); Potassium 4.2 mmol/L (3.5-5.1); Sodium 134 mmol/L (137-145)
--- NOTE | 2023-10-12 13:39 | P.PN ---
Subjective patient is seen for follow-up for hypokalemia and hyponatremia. Serum sodium has improvedto 134 and potassium is at 4.2. Random urine potassium was high at 41.4. Patient has not been on diuretics. Awaiting aldosterone and renin levels. TSH not low Blood pressure is controlled. Objective - Vital Signs Vital signs: Vital Signs Temp 98.2 F 10/12/23 12:02 Pulse 70 10/12/23 12:02 Resp 17 10/12/23 12:02 BP 112/72 10/12/23 12:02 Pulse Ox 95 10/12/23 12:02 FiO2 Intake & Output 10/11/23 10/12/23 10/12/23 18:59 06:59 18:59 Intake Total 1300 1375 Balance 1300 1375 Intake: Intake, IV Titration 1300 1375 Amount Lactated Ringers 1,000 ml 1000 1375 @ 125 mls/hr IV .Q8H AMANDA Rx#:[id number] Sodium Chloride 0.9% 1, 300 000 ml @ 75 mls/hr IV . [id number] STA Rx#:[id number] Other: # Bowel Movements 1 - Exam Patient is awake, comfortable, no acute distress. Alert oriented 3. Examination of the heart S1 and S2 Examination of the lungs bilateral breath sounds are heard Abdomen is soft nontender Examination of lower extremity shows no significant edema. Multiple tattoos noted in the arms. 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 Hypokalemia with no clear-cut etiology. Patient denies any significant diarrhea or vomiting. He has had poor oral intake which may be contributing to the hypokalemia. Blood pressure is elevated therefore I will check serum aldosterone and renin level. Random urine sodium is on the higher side suggesting some renal wasting. TSH is not low and his renin and aldosterone level is currently pending. magnesium was low at 1.3 and has been replaced. 2. Generalized weakness secondary to hypokalemia 3. Dyslipidemia maintained on Lipitor. 4. History of EtOH abuse with no recent intake. Serum alcohol level less than 10 this admission. 5. Hyponatremia, hypovolemic and associated with decreased oral intake. Improved Plan: continue with saline. Patient can likely be discharged home nephrology standpoint Patient will need frequent monitoring of electrolytes as outpatient. Follow-up on serum aldosterone and renin levels.
--- NOTE | 2023-10-12 20:15 | P.PN ---
Progress Note - Text Progress Note Date: 10/12/23 Chief Complaint: Weakness This is a 53-year-old patient, follows with Dr. Shell Bell. Patient had been drinking significant alcohol up to 3 months ago. When his mother he decided to stop drinking. For last 3 months he is not been able to eat well. V omiting occasionally. Weak and tired. He decided to call the EMS. When he went to open the door he fell backwards hitting his head. Never passed out. No other fever and chills. No diarrhea. Intermittently vomiting. Was drinking quite a bit prior to stopping 3 months ago. October 11: Patient has severe myopathy Severe hypokalemia. Aggressive potassium replacement had to be done. Magnesium replacement also done. 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 Patient today was able to walk about 220 feet with a rolling walker. Also tolerating his diet. Up in a chair. No vomiting. Discussed at length with the patient. Vitamin K had been added for hypercoagulable state. Active Medications Acetaminophen (Acetaminophen Tab 325 Mg Tab) 650 mg PO Q6HR PRN PRN Reason: Mild Pain or Fever > 100.5 Hydrocodone Bitart/Acetaminophen (Hydrocodone/Apap 5-325mg 1 Each Tab) 1 each PO Q4HR PRN PRN Reason: Moderate Pain (Scale 4 to 6) Alprazolam (Alprazolam 1 Mg Tab) 1 mg PO TID [facility] Last Admin: 10/12/23 17:26 Dose: 1 mg Calcium Carbonate/Glycine (Calcium Carbonate 500 Mg Chewable) 500 mg PO TID [facility] Last Admin: 10/12/23 17:26 Dose: 500 mg Clopidogrel Bisulfate (Clopidogrel 75 Mg Tab) 75 mg PO DAILY [facility] Last Admin: 10/12/23 09:46 Dose: 75 mg Ceftriaxone Sodium 2 gm/ (Sodium Chloride) 50 mls @ 100 mls/hr IVPB Q24HR [facility]; Protocol Last Admin: 10/12/23 09:49 Dose: 100 mls/hr Lactated Ringer's (Lactated Ringers) 1,000 mls @ 125 mls/hr IV .Q8H [facility] Last Admin: 10/12/23 20:08 Dose: 125 mls/hr Magnesium Oxide (Magnesium Oxide 400 Mg Tab) 400 mg PO TID [facility] Last Admin: 10/12/23 17:26 Dose: 400 mg Metoprolol Tartrate (Metoprolol Tartrate 50 Mg Tab) 50 mg PO BID [facility] Last Admin: 10/12/23 09:46 Dose: 50 mg Morphine Sulfate (Morphine Sulfate 4 Mg/Ml Syringe) 4 mg IV Q4HR PRN PRN Reason: Severe Pain (Scale 7 to 10) Multivitamins (Multivitamins, Thera 1 Each Tab) 1 each PO DAILY [facility] Last Admin: 10/12/23 09:46 Dose: 1 each Naloxone HCl (Naloxone 0.4 Mg/Ml 1 Ml Vial) 0.2 mg IV Q2M PRN PRN Reason: Opioid Reversal Ondansetron HCl (Ondansetron 4 Mg/2 Ml Vial) 4 mg IVP Q8HR PRN PRN Reason: Nausea And Vomiting Last Admin: 10/11/23 11:16 Dose: 4 mg Pantoprazole Sodium (Pantoprazole 40 Mg Tablet) 40 mg PO AC-BID [facility] Last Admin: 10/12/23 17:29 Dose: 40 mg Phytonadione (Phytonadione Oral 5 Mg/5 Ml Oral.Syrg) 10 mg PO DAILY [facility] Last Admin: 10/12/23 14:34 Dose: 10 mg Thiamine HCl (Thiamine 100 Mg Tab) 100 mg PO DAILY [facility] Last Admin: 10/12/23 09:46 Dose: 100 mg Social history: Lives alone. Was drinking heavy alcohol. Up to 3 months ago. Smoked on and off for 30 years stopped about 5 years ago. Currently not employed Physical examination: VITAL SIGNS: 98.1, 88, 20, 106/73, 92% room air GENERAL: Up in a recliner EYES: Pupils equal. Conjunctiva cecy l. HEENT: External appearance of nose and ears normal, oral cavity grossly normal. NECK: JVD not raised; masses not palpable. HEART: First and second heart sounds are normal; no edema. LUNGS: Respiratory rate normal; clear to auscultation. ABDOMEN: Soft, nontender, liver spleen not palpable, no masses palpable. PSYCH: Alert and oriented x3; mood and affect tired anxious l. MUSCULOSKELETAL:No Clubbing/cyanosis;muscles-grossly intact INVESTIGATIONS, reviewed in the clinical context: Abdominal ultrasound: Liver enlarged. Increased attenuation. October 11: Potassium 4.2 BUN less than 2 creatinine 0.5. Ionized calcium 4.5 October 10: Potassium 2.6 TSH 3.7 October 09: Potassium 2 bicarb 38 BUN 3 creatinine 0.6 lactic acid 5 calcium 7.6 total bilirubin 2.7 sodium 125 creatinine 0.55 Urine drug screen positive for benzodiazepine EKG tracing personally reviewed by me-normal sinus rhythm's. Some ST/T Wave changes. Venous Doppler left leg: Negative for DVT Chest x-ray film personally reviewed by me-unremarkable UA: Negative Assessment and plan: -Acute severe myopathy from multiple electrolyte abnormalities including severe hypokalemia: Better Hold Lipitor -Severe hypokalemia from persistent vomiting: Better Telemetry. Aggressive potassium replacement done -Hypomagnesemia Magnesium oxide 4 mg 3 times daily -Severe hyponatremia hypovolemia from poor oral intake Lactated Ringer's -Lactic acidosis, secondary to poor oral intake and vomiting -Normal coagulopathy. Possible underlying liver disease vitamin K. -Check for liver disease with ultrasound given history of alcoholism up to 3 months ago Supplement thiamine -Acute medical debility from electrolyte abnormalities poor oral intake improving Walk 200 m without assist with walker PT OT -Full code Care was discussed length with the patient. Repeat labs Past Medical History Past Medical History: CVA/TIA, Hyperlipidemia, Hypertension Additional Past Medical History / Comment(s): ETOH, diverticulitis History of Any Multi-Drug Resistant Organisms: None Reported Past Surgical History: Bowel Resection Additional Past Surgical History / Comment(s): 6 in of bowel removed. carotid artery surgery Past Anesthesia/Blood Transfusion Reactions: No Reported Reaction Past Psychological History: No Psychological Hx Reported Smoking Status: Former smoker, Vaper
[2023-10-13 06:59] LABS: INR 1.3 (<1.2); Prothrombin Time 13.9 sec (10.0-12.5)
[2023-10-13 07:09] LABS: ALT 15 U/L (4-49); AST 53 U/L (17-59); African American GFR (CKD) >90 (>60 ml/min/1.73 sqM); Albumin 2.5 g/dL (3.5-5.0); Albumin/Globulin Ratio 0.8; Alkaline Phosphatase 94 U/L (38-126); Anion Gap 6 mmol/L; Blood Urea Nitrogen <2 mg/dL (9-20); Calcium 8.2 mg/dL (8.4-10.2); Carbon Dioxide 29 mmol/L (22-30); Chloride 97 mmol/L (98-107); Globulin 3.1 g/dL; Glucose 81 mg/dL (74-99); Magnesium 1.4 mg/dL (1.6-2.3); Non-African American GFR(CKD) >90 (>60 ml/min/1.73 sqM); Potassium 3.2 mmol/L (3.5-5.1); Sodium 132 mmol/L (137-145); Total Bilirubin 1.3 mg/dL (0.2-1.3); Total Protein 5.6 g/dL (6.3-8.2)
[2023-10-13] MEDS: SPIRONOLACTONE 25 MG TAB PO SCH (10:31)
[2023-10-13] MEDS: POTASSIUM CHLORIDE ER 20 MEQ TAB.ER PO STA (10:31)
--- NOTE | 2023-10-13 13:10 | CA ---
Transthoracic Echo Report Name: Braxton Méndez Age: 53 Gender: M : 1970 Exam Date: 10/12/2023 15:10 Exam Location: [facility] Ht (in): 70 Wt (lb): 240 Ordering Physician: Dante Borges MD Attending/Referring Phys: Ribbon Winder Pamela Ott RDCS Procedure CPT: Indications: Evaluate for cardiomyopathy Cardiac Hx: Technical Quality: Very technically difficult study Contrast 1: Definity Total Dose (mL): 2 Contrast 2: Total Dose (mL): MEASUREMENTS (Male / Female) Normal Values 2D ECHO LVOT Diameter 2.4 cm LV Diastolic Volume MOD BP 161.0 cm??? 67 - 155 / 56 - 104 cm??? LV Systolic Volume MOD BP 57.7 cm??? 22 - 58 / 19 - 49 cm??? LV Ejection Fraction MOD BP 64.2 % >= 55 % LV Cardiac Index MOD BP 3684.0 cm???/min???m??? LV Diastolic Volume MOD 4C 175.5 cm??? LV Systolic Volume MOD 4C 57.5 cm??? LV Ejection Fraction MOD 4C 67.3 % LV Cardiac Index MOD 4C 4207.9 cm???/min???m??? LV Diastolic Length 4C 9.3 cm LV Systolic Length 4C 6.6 cm LV Diastolic Volume MOD 2C 132.6 cm??? LV Systolic Volume MOD 2C 55.9 cm??? LV Ejection Fraction MOD 2C 57.9 % LV Cardiac Index MOD 2C 2735.9 cm???/min???m??? LV Diastolic Length 2C 8.4 cm LV Systolic Length 2C 6.9 cm Ascending Aorta Diameter 3.7 cm DOPPLER AV Peak Velocity 120.3 cm/s AV Peak Gradient 5.8 mmHg AV Mean Velocity 88.9 cm/s AV Mean Gradient 3.5 mmHg AV Velocity Time Integral 23.8 cm LVOT Peak Velocity 103.4 cm/s LVOT Peak Gradient 4.3 mmHg LVOT Velocity Time Integral 18.9 cm LVOT Stroke Volume 84.3 cm??? LVOT Stroke Volume Index 37.4 ml/m??? LVOT Cardiac Index 3006.3 cm???/min???m??? AV Area Cont Eq vti 3.5 cm??? AV Area Cont Eq pk 3.8 cm??? MV Area PHT 3.4 cm??? Mitral E Point Velocity 66.9 cm/s Mitral A Point Velocity 55.2 cm/s Mitral E to A Ratio 1.2 MV Deceleration Time 220.4 ms PV Peak Velocity 84.4 cm/s PV Peak Gradient 2.8 mmHg FINDINGS Left Ventricle Left ventricular ejection fraction is estimated at 55-60 %. Mildly increased left ventricular diastolic volume. No obvious regional wall motion abnormalities. Right Ventricle Normal right ventricular size and function. Unable to estimate the right ventricular systolic pressure. Right Atrium Normal right atrial size. Left Atrium Normal left atrial size. Mitral Valve Structurally normal mitral valve. No mitral stenosis, regurgitation or prolapse. Aortic Valve Trileaflet aortic valve. No aortic valve stenosis or regurgitation. Tricuspid Valve Structurally normal tricuspid valve. No tricuspid stenosis, regurgitation or prolapse. Pulmonic Valve Pulmonic valve not well visualized. Pericardium No pericardial effusion. Aorta Normal size aortic root and proximal ascending aorta. CONCLUSIONS Left ventricular ejection fraction is estimated at 55-60 %. No obvious regional wall motion abnormalities. No significant diastolic function No significant chamber size abnormality Previewed by: Dr Campos Garcia (Electronically Signed) Final Date: 13 October 2023 13:08
--- NOTE | 2023-10-13 17:52 | P.PN ---
Progress Note - Text Progress Note Date: 10/13/23 Chief Complaint: Weakness This is a 53-year-old patient, follows with Dr. Shell Bell. Patient had been drinking significant alcohol up to 3 months ago. When his mother he decided to stop drinking. For last 3 months he is not been able to eat well. V omiting occasionally. Weak and tired. He decided to call the EMS. When he went to open the door he fell backwards hitting his head. Never passed out. No other fever and chills. No diarrhea. Intermittently vomiting. Was drinking quite a bit prior to stopping 3 months ago. October 11: Patient has severe myopathy Severe hypokalemia. Aggressive potassium replacement had to be done. Magnesium replacement also done. 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 Patient today was able to walk about 220 feet with a rolling walker. Also tolerating his diet. Up in a chair. No vomiting. Discussed at length with the patient. Vitamin K had been added for hypercoagulable state. October 12: Patient feeling better. Able to keep his food down. INR coming down. Discussed at length with the patient. Increase activity. Hoping to discharge home tomorrow. Active Medications Acetaminophen (Acetaminophen Tab 325 Mg Tab) 650 mg PO Q6HR PRN PRN Reason: Mild Pain or Fever > 100.5 Hydrocodone Bitart/Acetaminophen (Hydrocodone/Apap 5-325mg 1 Each Tab) 1 each PO Q4HR PRN PRN Reason: Moderate Pain (Scale 4 to 6) Alprazolam (Alprazolam 1 Mg Tab) 1 mg PO TID [facility] Last Admin: 10/13/23 15:14 Dose: 1 mg Calcium Carbonate/Glycine (Calcium Carbonate 500 Mg Chewable) 500 mg PO TID [facility] Last Admin: 10/13/23 14:26 Dose: 500 mg Clopidogrel Bisulfate (Clopidogrel 75 Mg Tab) 75 mg PO DAILY [facility] Last Admin: 10/13/23 08:25 Dose: 75 mg Ceftriaxone Sodium 2 gm/ (Sodium Chloride) 50 mls @ 100 mls/hr IVPB Q24HR [facility]; Protocol Last Admin: 10/13/23 08:25 Dose: 100 mls/hr Lactated Ringer's (Lactated Ringers) 1,000 mls @ 50 mls/hr IV .Q20H [facility] Last Admin: 10/13/23 14:24 Dose: 50 mls/hr Magnesium Oxide (Magnesium Oxide 400 Mg Tab) 400 mg PO TID [facility] Last Admin: 10/13/23 15:14 Dose: 400 mg Metoprolol Tartrate (Metoprolol Tartrate 50 Mg Tab) 50 mg PO BID [facility] Last Admin: 10/13/23 08:25 Dose: 50 mg Multivitamins (Multivitamins, Thera 1 Each Tab) 1 each PO DAILY [facility] Last Admin: 10/13/23 08:25 Dose: 1 each Naloxone HCl (Naloxone 0.4 Mg/Ml 1 Ml Vial) 0.2 mg IV Q2M PRN PRN Reason: Opioid Reversal Ondansetron HCl (Ondansetron 4 Mg/2 Ml Vial) 4 mg IVP Q8HR PRN PRN Reason: Nausea And Vomiting Last Admin: 10/11/23 11:16 Dose: 4 mg Pantoprazole Sodium (Pantoprazole 40 Mg Tablet) 40 mg PO AC-BID [facility] Last Admin: 10/13/23 17:10 Dose: 40 mg Phytonadione (Phytonadione Oral 5 Mg/5 Ml Oral.Syrg) 10 mg PO DAILY [facility] Last Admin: 10/13/23 10:42 Dose: 10 mg Spironolactone (Spironolactone 25 Mg Tab) 25 mg PO DAILY [facility] Last Admin: 10/13/23 10:31 Dose: 25 mg Thiamine HCl (Thiamine 100 Mg Tab) 100 mg PO DAILY [facility] Last Admin: 10/13/23 08:25 Dose: 100 mg Social history: Lives alone. Was drinking heavy alcohol. Up to 3 months ago. Smoked on and off for 30 years stopped about 5 years ago. Currently not employed Physical examination: VITAL SIGNS: 98.4, 79, 20, 137/87, 95% on room air GENERAL: Comfortable EYES: Pupils equal. Conjunctiva cecy l. HEENT: External appearance of nose and ears normal, oral cavity grossly normal. NECK: JVD not raised; masses not palpable. HEART: First and second heart sounds are normal; no edema. LUNGS: Respiratory rate normal; clear to auscultation. ABDOMEN: Soft, nontender, liver spleen not palpable, no masses palpable. PSYCH: Alert and oriented x3; mood and affect tired anxious l. MUSCULOSKELETAL:No Clubbing/cyanosis;muscles-grossly intact INVESTIGATIONS, reviewed in the clinical context: October 12: Pro time 13.9 potassium 3.2 creatinine 0.51 Abdominal ultrasound: Liver enlarged. Increased attenuation. October 11: Potassium 4.2 BUN less than 2 creatinine 0.5. Ionized calcium 4.5 October 10: Potassium 2.6 TSH 3.7 October 09: Potassium 2 bicarb 38 BUN 3 creatinine 0.6 lactic acid 5 calcium 7.6 total bilirubin 2.7 sodium 125 creatinine 0.55 Urine drug screen positive for benzodiazepine EKG tracing personally reviewed by me-normal sinus rhythm's. Some ST/T Wave changes. Venous Doppler left leg: Negative for DVT Chest x-ray film personally reviewed by me-unremarkable UA: Negative Assessment and plan: -Acute severe myopathy from multiple electrolyte abnormalities including severe hypokalemia: Better Hold Lipitor -Severe hypokalemia from persistent vomiting: Better Telemetry. Aggressive potassium replacement done -Hypomagnesemia Magnesium oxide 4 mg 3 times daily -Severe hyponatremia hypovolemia from poor oral intake Lactated Ringer's -Lactic acidosis, secondary to poor oral intake and vomiting -Abnormal coagulopathy. Possible underlying liver disease vitamin K. -Check for liver disease with ultrasound given history of alcoholism up to 3 months ago Supplement thiamine -Acute medical debility from electrolyte abnormalities poor oral intake improving Walk 200 m without assist with walker PT OT -Full code Continue current medication treatment plan. Hoping for discharge tomorrow. Past Medical History Past Medical History: CVA/TIA, Hyperlipidemia, Hypertension Additional Past Medical History / Comment(s): ETOH, diverticulitis History of Any Multi-Drug Resistant Organisms: None Reported Past Surgical History: Bowel Resection Additional Past Surgical History / Comment(s): 6 in of bowel removed. carotid artery surgery Past Anesthesia/Blood Transfusion Reactions: No Reported Reaction Past Psychological History: No Psychological Hx Reported Smoking Status: Former smoker, Vaper
--- NOTE | 2023-10-13 21:40 | P.PN ---
Subjective patient is seen for follow-up for hypokalemia and hyponatremia. Serum sodium is 132 today and potassium is 3.2. Magnesium at 1.4 Random urine potassium was high at 41.4. Patient has not been on diuretics. Creatinine and aldosterone levels not high. TSH not low Blood pressure is controlled. No significant complaints today. Objective - Vital Signs Vital signs: Vital Signs Temp 98.7 F 10/13/23 19:34 Pulse 116 H 10/13/23 19:34 Resp 20 10/13/23 19:34 BP 130/85 10/13/23 19:34 Pulse Ox 91 L 10/13/23 19:34 FiO2 Intake & Output 10/13/23 10/13/23 10/14/23 06:59 18:59 06:59 Intake Total 600 Output Total 600 500 Balance 0 -500 Intake: Intake, IV Titration 600 Amount Lactated Ringers 1,000 ml 600 @ 50 mls/hr IV .Q20H [facility] Rx#:[id number] Output: Urine 600 500 Other: Voiding Method Urinal Urinal - Exam Patient is awake, comfortable, no acute distress. Alert oriented 3. Examination of the heart S1 and S2 Examination of the lungs bilateral breath sounds are heard Abdomen is soft nontender Examination of lower extremity shows no significant edema. Multiple tattoos noted in the arms. 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 - Labs CBC & Chem 7: 10/10/23 12:21 10/13/23 06:26 Labs: Abnormal Lab Results - Last 24 Hours (Table) 10/13/23 10/13/23 Range/Units 06:26 06:26 PT 13.9 H (10.0-12.5) sec INR 1.3 H (<1.2) Sodium 132 L (137-145) mmol/L Potassium 3.2 L (3.5-5.1) mmol/L Chloride 97 L (98-107) mmol/L BUN <2 L (9-20) mg/dL Creatinine 0.51 L (0.66-1.25) mg/dL Calcium 8.2 L (8.4-10.2) mg/dL Magnesium 1.4 L (1.6-2.3) mg/dL Total Protein 5.6 L (6.3-8.2) g/dL Albumin 2.5 L (3.5-5.0) g/dL Microbiology - Last 24 Hours (Table) 10/10/23 14:48 Blood Culture - Preliminary Blood 10/10/23 14:30 Blood Culture - Preliminary Blood Assessment and Plan Assessment: 1. Hypokalemia with no clear-cut etiology. Patient denies any significant diarrhea or vomiting. He has had poor oral intake which may be contributing to hypokalemia. Serum aldosterone and renin levels are not elevated.. Random urine sodium is on the higher side suggesting some renal wasting. TSH is not low. 2. Generalized weakness secondary to hypokalemia 3. Dyslipidemia maintained on Lipitor. 4. History of EtOH abuse with no recent intake. Serum alcohol level less than 10 this admission. 5. Hyponatremia, hypovolemic and associated with decreased oral intake. Improved. 6. Hypomagnesemia secondary to history of EtOH abuse and poor oral intake. Plan: continue with saline. Continue potassium and magnesium supplementation. Add Aldactone. Check PTH level for workup of hypomagnesemia.
[2023-10-14 10:49] LABS: African American GFR (CKD) >90 (>60 ml/min/1.73 sqM); Anion Gap 2 mmol/L; Blood Urea Nitrogen <2 mg/dL (9-20); Calcium 8.7 mg/dL (8.4-10.2); Carbon Dioxide 34 mmol/L (22-30); Chloride 97 mmol/L (98-107); Glucose 104 mg/dL (74-99); Non-African American GFR(CKD) >90 (>60 ml/min/1.73 sqM); Potassium 3.2 mmol/L (3.5-5.1); Sodium 133 mmol/L (137-145)
--- NOTE | 2023-10-14 12:23 | CT ---
EXAMINATION TYPE: CT brain wo con DATE OF EXAM: 10/14/2023 COMPARISON: 4 HISTORY: fall CT DLP: 1087.[address] of the brain was performed. The ventricles, basal cisterns and sulci overlying the cerebral convexities demonstrate mild enlargem ent. There is no evidence for intracranial hemorrhage or sulcal effacement. There is decreased attenuation about the periventricular white matter and deep white matter of both c erebral hemispheres, compatible with chronic small vessel ischemia. Differential diagnosis does inclu de demyelination. No mass effects are seen.No midline shift. Osseous calvarium is intact. If symptoms persist consider MRI. IMPRESSION: 1. Age related atrophic and chronic small vessel ischemic change without acute intracranial process s een at this time.
[2023-10-14] MEDS: POTASSIUM CHLORIDE ER 20 MEQ TAB.ER PO SCH (16:13)
--- NOTE | 2023-10-14 17:11 | P.PN ---
Progress Note - Text Progress Note Date: 10/14/23 Chief Complaint: Weakness This is a 53-year-old patient, follows with Dr. Shell Bell. Patient had been drinking significant alcohol up to 3 months ago. When his mother he decided to stop drinking. For last 3 months he is not been able to eat well. V omiting occasionally. Weak and tired. He decided to call the EMS. When he went to open the door he fell backwards hitting his head. Never passed out. No other fever and chills. No diarrhea. Intermittently vomiting. Was drinking quite a bit prior to stopping 3 months ago. October 11: Patient has severe myopathy Severe hypokalemia. Aggressive potassium replacement had to be done. Magnesium replacement also done. 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 Patient today was able to walk about 220 feet with a rolling walker. Also tolerating his diet. Up in a chair. No vomiting. Discussed at length with the patient. Vitamin K had been added for hypercoagulable state. October 12: Patient feeling better. Able to keep his food down. INR coming down. Discussed at length with the patient. Increase activity. Hoping to discharge home tomorrow. October 13: Patient was walking felt weak in the leg and fell down. Hit his head. Stat CT scan did not show any fracture. No focal symptoms. No change in sensorium. Has a hematoma. Ice pack ordered. Patient wants to go to rehab. Process initiated. Potassium 3.2-replaced Active Medications Acetaminophen (Acetaminophen Tab 325 Mg Tab) 650 mg PO Q6HR PRN PRN Reason: Mild Pain or Fever > 100.5 Hydrocodone Bitart/Acetaminophen (Hydrocodone/Apap 5-325mg 1 Each Tab) 1 each PO Q4HR PRN PRN Reason: Moderate Pain (Scale 4 to 6) Alprazolam (Alprazolam 1 Mg Tab) 1 mg PO TID [facility] Last Admin: 10/14/23 16:13 Dose: 1 mg Calcium Carbonate/Glycine (Calcium Carbonate 500 Mg Chewable) 500 mg PO TID [facility] Last Admin: 10/14/23 16:13 Dose: 500 mg Clopidogrel Bisulfate (Clopidogrel 75 Mg Tab) 75 mg PO DAILY [facility] Last Admin: 10/14/23 09:24 Dose: 75 mg Magnesium Oxide (Magnesium Oxide 400 Mg Tab) 400 mg PO TID [facility] Last Admin: 10/14/23 16:13 Dose: 400 mg Metoprolol Tartrate (Metoprolol Tartrate 50 Mg Tab) 50 mg PO BID [facility] Last Admin: 10/14/23 09:24 Dose: 50 mg Multivitamins (Multivitamins, Thera 1 Each Tab) 1 each PO DAILY [facility] Last Admin: 10/14/23 09:24 Dose: 1 each Naloxone HCl (Naloxone 0.4 Mg/Ml 1 Ml Vial) 0.2 mg IV Q2M PRN PRN Reason: Opioid Reversal Ondansetron HCl (Ondansetron 4 Mg/2 Ml Vial) 4 mg IVP Q8HR PRN PRN Reason: Nausea And Vomiting Last Admin: 10/11/23 11:16 Dose: 4 mg Pantoprazole Sodium (Pantoprazole 40 Mg Tablet) 40 mg PO AC-BID [facility] Last Admin: 10/14/23 09:24 Dose: 40 mg Phytonadione (Phytonadione Oral 5 Mg/5 Ml Oral.Syrg) 10 mg PO DAILY [facility] Last Admin: 10/14/23 09:26 Dose: 10 mg Potassium Chloride (Potassium Chloride Er 20 Meq Tab.Er) 20 meq PO Q2HR [facility] Stop: 10/14/23 20:01 Last Admin: 10/14/23 16:13 Dose: 20 meq Spironolactone (Spironolactone 25 Mg Tab) 25 mg PO DAILY [facility] Last Admin: 10/14/23 09:24 Dose: 25 mg Thiamine HCl (Thiamine 100 Mg Tab) 100 mg PO DAILY [facility] Last Admin: 10/14/23 09:24 Dose: 100 mg Social history: Lives alone. Was drinking heavy alcohol. Up to 3 months ago. Smoked on and off for 30 years stopped about 5 years ago. Currently not employed Physical examination: VITAL SIGNS: 97.7, 70, 16, 145/68, 94% room air GENERAL: Comfortable EYES: Pupils equal. Conjunctiva cecy l. HEENT: External appearance of nose and ears normal, oral cavity grossly normal. Hematoma in the back of the head NECK: JVD not raised; masses not palpable. HEART: First and second heart sounds are normal; no edema. LUNGS: Respiratory rate normal; clear to auscultation. ABDOMEN: Soft, nontender, liver spleen not palpable, no masses palpable. PSYCH: Alert and oriented x3; mood and affect tired anxious l. MUSCULOSKELETAL:No Clubbing/cyanosis;muscles-grossly intact INVESTIGATIONS, reviewed in the clinical context: CT scan skull: No fracture October 12: Pro time 13.9 potassium 3.2 creatinine 0.51 Abdominal ultrasound: Liver enlarged. Increased attenuation. October 11: Potassium 4.2 BUN less than 2 creatinine 0.5. Ionized calcium 4.5 October 10: Potassium 2.6 TSH 3.7 October 09: Potassium 2 bicarb 38 BUN 3 creatinine 0.6 lactic acid 5 calcium 7.6 total bilirubin 2.7 sodium 125 creatinine 0.55 Urine drug screen positive for benzodiazepine EKG tracing personally reviewed by me-normal sinus rhythm's. Some ST/T Wave changes. Venous Doppler left leg: Negative for DVT Chest x-ray film personally reviewed by me-unremarkable UA: Negative Assessment and plan: -Acute severe myopathy from multiple electrolyte abnormalities including severe hypokalemia: Better Hold Lipitor -Severe hypokalemia from persistent vomiting: Better Telemetry. Aggressive potassium replacement done -Hypomagnesemia Magnesium oxide 4 mg 3 times daily -Severe hyponatremia hypovolemia from poor oral intake Lactated Ringer's -Lactic acidosis, secondary to poor oral intake and vomiting -Abnormal coagulopathy. Possible underlying liver disease vitamin K. -Alcohol liver disease Supplement thiamine -Acute medical debility from electrolyte abnormalities poor oral intake improvin g PT OT -Full code Discussed with patient. CT scan head negative. Replace potassium. Looking into rehab Past Medical History Past Medical History: CVA/TIA, Hyperlipidemia, Hypertension Additional Past Medical History / Comment(s): ETOH, diverticulitis History of Any Multi-Drug Resistant Organisms: None Reported Past Surgical History: Bowel Resection Additional Past Surgical History / Comment(s): 6 in of bowel removed. carotid artery surgery Past Anesthesia/Blood Transfusion Reactions: No Reported Reaction Past Psychological History: No Psychological Hx Reported Smoking Status: Former smoker, Vaper
[2023-10-14] MEDS: POTASSIUM CHLORIDE ER 20 MEQ TAB.ER PO STA (17:34)
[2023-10-14] MEDS: HYDROcodone/APAP 5-325MG 1 EACH TAB PO PRN (21:17)
[2023-10-15 05:10] LABS: African American GFR (CKD) >90 (>60 ml/min/1.73 sqM); Anion Gap 5 mmol/L; Blood Urea Nitrogen <2 mg/dL (9-20); Calcium 8.5 mg/dL (8.4-10.2); Carbon Dioxide 33 mmol/L (22-30); Chloride 96 mmol/L (98-107); Glucose 80 mg/dL (74-99); Non-African American GFR(CKD) >90 (>60 ml/min/1.73 sqM); Potassium 3.7 mmol/L (3.5-5.1); Sodium 134 mmol/L (137-145)
[2023-10-15] MEDS: SPIRONOLACTONE 25 MG TAB PO SCH (08:40)
[2023-10-15] MEDS: POTASSIUM CHLORIDE ER 20 MEQ TAB.ER PO SCH (08:40)
--- NOTE | 2023-10-15 08:49 | P.PN ---
Subjective Patient is seen in follow-up for hypokalemia. Potassium level better today. Oral intake is good. Denies vomiting or diarrhea. Vital signs are stable. General: No acute distress. HEENT: Head exam is unremarkable. LUNGS: No audible rhonchi or wheezes. HEART: Rate and Rhythm are regular. ABDOMEN: Obese, nontender. EXTREMITITES: No edema. Objective - Vital Signs Vital signs: Vital Signs Temp 97.6 F 10/15/23 07:32 Pulse 96 10/15/23 07:32 Resp 16 10/15/23 07:32 BP 111/74 10/15/23 07:32 Pulse Ox 94 L 10/15/23 07:32 FiO2 Intake & Output 10/14/23 10/15/23 10/15/23 18:59 06:59 18:59 Intake Total 1620 Output Total 1150 1200 Balance 470 -1200 Intake: Oral 1620 Output: Urine 1150 1200 Other: Voiding Method Urinal - Labs CBC & Chem 7: 10/10/23 12:21 10/15/23 04:24 Labs: Abnormal Lab Results - Last 24 Hours (Table) 10/14/23 10/15/23 Range/Units 10:22 04:24 Sodium 133 L 134 L (137-145) mmol/L Potassium 3.2 L (3.5-5.1) mmol/L Chloride 97 L 96 L (98-107) mmol/L Carbon Dioxide 34 H 33 H (22-30) mmol/L BUN <2 L <2 L (9-20) mg/dL Creatinine 0.49 L 0.52 L (0.66-1.25) mg/dL Glucose 104 H (74-99) mg/dL Assessment and Plan Plan: Assessment: 1. Hypokalemia. Urine potassium 41.4 which is high in the setting of hypokalemia suggestive of renal potassium wasting. Aldosterone level low. Magnesium noted to be on the lower side which can induce renal potassium losses. TSH normal. Patient was also receiving IV fluids which can lead to renal potassium losses as well. 2. Hypomagnesemia from poor intake and chronic alcohol use causing renal magnesium wasting. On magnesium oxide. 3. Alcohol abuse. 4. Hyponatremia, initially hypovolemic. Now euvolemic. Improved. Plan: Maintain Aldactone. Maintain magnesium oxide. Encouraged oral intake. Repeat labs again in the morning and 2 to 3 days postdischarge.
--- NOTE | 2023-10-15 16:46 | P.PN ---
Progress Note - Text Progress Note Date: 10/15/23 Chief Complaint: Weakness This is a 53-year-old patient, follows with Dr. Shell Bell. Patient had been drinking significant alcohol up to 3 months ago. When his mother he decided to stop drinking. For last 3 months he is not been able to eat well. V omiting occasionally. Weak and tired. He decided to call the EMS. When he went to open the door he fell backwards hitting his head. Never passed out. No other fever and chills. No diarrhea. Intermittently vomiting. Was drinking quite a bit prior to stopping 3 months ago. October 11: Patient has severe myopathy Severe hypokalemia. Aggressive potassium replacement had to be done. Magnesium replacement also done. 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 Patient today was able to walk about 220 feet with a rolling walker. Also tolerating his diet. Up in a chair. No vomiting. Discussed at length with the patient. Vitamin K had been added for hypercoagulable state. October 12: Patient feeling better. Able to keep his food down. INR coming down. Discussed at length with the patient. Increase activity. Hoping to discharge home tomorrow. October 13: Patient was walking felt weak in the leg and fell down. Hit his head. Stat CT scan did not show any fracture. No focal symptoms. No change in sensorium. Has a hematoma. Ice pack ordered. Patient wants to go to rehab. Process initiated. Potassium 3.2-replaced October 14: Resting in bed. Pending discharge to rehab. Authorization pending. Tolerating diet. Discussed with patient. Potassium is good today. Active Medications Acetaminophen (Acetaminophen Tab 325 Mg Tab) 650 mg PO Q6HR PRN PRN Reason: Mild Pain or Fever > 100.5 Hydrocodone Bitart/Acetaminophen (Hydrocodone/Apap 5-325mg 1 Each Tab) 1 each PO Q4HR PRN PRN Reason: Moderate Pain (Scale 4 to 6) Last Admin: 10/14/23 21:17 Dose: 1 each Alprazolam (Alprazolam 1 Mg Tab) 1 mg PO TID [facility] Last Admin: 10/15/23 08:40 Dose: 1 mg Calcium Carbonate/Glycine (Calcium Carbonate 500 Mg Chewable) 500 mg PO TID [facility] Last Admin: 10/15/23 08:40 Dose: 500 mg Clopidogrel Bisulfate (Clopidogrel 75 Mg Tab) 75 mg PO DAILY [facility] Last Admin: 10/15/23 08:39 Dose: 75 mg Magnesium Oxide (Magnesium Oxide 400 Mg Tab) 400 mg PO TID [facility] Last Admin: 10/15/23 08:39 Dose: 400 mg Metoprolol Tartrate (Metoprolol Tartrate 50 Mg Tab) 50 mg PO BID [facility] Last Admin: 10/15/23 08:40 Dose: 50 mg Multivitamins (Multivitamins, Thera 1 Each Tab) 1 each PO DAILY [facility] Last Admin: 10/15/23 08:39 Dose: 1 each Naloxone HCl (Naloxone 0.4 Mg/Ml 1 Ml Vial) 0.2 mg IV Q2M PRN PRN Reason: Opioid Reversal Ondansetron HCl (Ondansetron 4 Mg/2 Ml Vial) 4 mg IVP Q8HR PRN PRN Reason: Nausea And Vomiting Last Admin: 10/11/23 11:16 Dose: 4 mg Pantoprazole Sodium (Pantoprazole 40 Mg Tablet) 40 mg PO AC-BID [facility] Last Admin: 10/15/23 08:40 Dose: 40 mg Phytonadione (Phytonadione Oral 5 Mg/5 Ml Oral.Syrg) 10 mg PO DAILY [facility] Last Admin: 10/15/23 08:42 Dose: 10 mg Potassium Chloride (Potassium Chloride Er 20 Meq Tab.Er) 20 meq PO DAILY [facility] Last Admin: 10/15/23 08:40 Dose: 20 meq Spironolactone (Spironolactone 25 Mg Tab) 50 mg PO DAILY [facility] Last Admin: 10/15/23 08:40 Dose: 50 mg Thiamine HCl (Thiamine 100 Mg Tab) 100 mg PO DAILY [facility] Last Admin: 10/15/23 08:40 Dose: 100 mg Social history: Lives alone. Was drinking heavy alcohol. Up to 3 months ago. Smoked on and off for 30 years stopped about 5 years ago. Currently not employed Physical examination: VITAL SIGNS: 98.2, 84, 16, 130/86, 91% room air GENERAL: Comfortable EYES: Pupils equal. Conjunctiva cecy l. HEENT: External appearance of nose and ears normal, oral cavity grossly normal. Hematoma in the back of the head NECK: JVD not raised; masses not palpable. HEART: First and second heart sounds are normal; no edema. LUNGS: Respiratory rate normal; clear to auscultation. ABDOMEN: Soft, nontender, liver spleen not palpable, no masses palpable. PSYCH: Alert and oriented x3; mood and affect tired anxious l. MUSCULOSKELETAL:No Clubbing/cyanosis;muscles-grossly intact INVESTIGATIONS, reviewed in the clinical context: October 14: Sodium 134 potassium 3.[address] scan skull: No fracture October 12: Pro time 13.9 potassium 3.2 creatinine 0.51 Abdominal ultrasound: Liver enlarged. Increased attenuation. October 11: Potassium 4.2 BUN less than 2 creatinine 0.5. Ionized calcium 4.5 October 10: Potassium 2.6 TSH 3.7 October 09: Potassium 2 bicarb 38 BUN 3 creatinine 0.6 lactic acid 5 calcium 7.6 total bilirubin 2.7 sodium 125 creatinine 0.55 Urine drug screen positive for benzodiazepine EKG tracing personally reviewed by me-normal sinus rhythm's. Some ST/T Wave changes. Venous Doppler left leg: Negative for DVT Chest x-ray film personally reviewed by me-unremarkable UA: Negative Assessment and plan: -Acute severe myopathy from multiple electrolyte abnormalities including severe hypokalemia: Better Hold Lipitor -Severe hypokalemia from persistent vomiting: Better Telemetry. Aggressive potassium replacement done -Hypomagnesemia Magnesium oxide 4 mg 3 times daily -Severe hyponatremia hypovolemia from poor oral intake Lactated Ringer's -Lactic acidosis, secondary to poor oral intake and vomiting -Abnormal coagulopathy. Possible underlying liver disease vitamin K. -Alcohol liver disease Supplement thiamine -Acute medical debility from electrolyte abnormalities poor oral intake improving PT OT -Full code Pending getting excepted at rehab. Past Medical History Past Medical History: CVA/TIA, Hyperlipidemia, Hypertension Additional Past Medical History / Comment(s): ETOH, diverticulitis History of Any Multi-Drug Resistant Organisms: None Reported Past Surgical History: Bowel Resection Additional Past Surgical History / Comment(s): 6 in of bowel removed. carotid artery surgery Past Anesthesia/Blood Transfusion Reactions: No Reported Reaction Past Psychological History: No Psychological Hx Reported Smoking Status: Former smoker, Vaper
[2023-10-16 10:09] LABS: BUN/Creat Ratio <5.83 Ratio (12.00-20.00); Blood Urea Nitrogen <3.5 mg/dL (9.0-27.0); Calcium 8.7 mg/dL (8.7-10.3); Carbon Dioxide 31.4 mmol/L (21.6-31.8); Chloride 96 mmol/L (96-109); Glucose 90 mg/dL (70-110); Magnesium 1.6 mg/dL (1.5-2.4); Potassium 3.6 mmol/L (3.5-5.5); Sodium 137 mmol/L (135-145)
--- NOTE | 2023-10-16 11:04 | P.PN ---
Subjective Patient is seen in follow-up for hypokalemia. Potassium level stable. Oral intake is good. Denies vomiting or diarrhea. Vital signs are stable. General: No acute distress. HEENT: Head exam is unremarkable. LUNGS: No audible rhonchi or wheezes. HEART: Rate and Rhythm are regular. ABDOMEN: Obese, nontender. EXTREMITITES: No edema. Objective - Vital Signs Vital signs: Vital Signs Temp 98.1 F 10/16/23 08:07 Pulse 106 H 10/16/23 08:07 Resp 17 10/16/23 08:07 BP 115/76 10/16/23 08:07 Pulse Ox 93 L 10/16/23 08:07 FiO2 Intake & Output 10/15/23 10/16/23 10/16/23 18:59 06:59 18:59 Intake Total 777 640 Output Total 600 1575 1050 Balance 177 -408 -1050 Intake: Oral 777 640 Output: Urine 600 1575 1050 Other: # Voids 1 - Labs CBC & Chem 7: 10/10/23 12:21 10/16/23 05:45 Labs: Abnormal Lab Results - Last 24 Hours (Table) 10/16/23 Range/Units 05:45 BUN <3.5 L (9.0-27.0) mg/dL BUN/Creatinine Ratio <5.83 L (12.00-20.00) Ratio Microbiology - Last 24 Hours (Table) 10/10/23 14:48 Blood Culture - Final Blood 10/10/23 14:30 Blood Culture - Final Blood Assessment and Plan Plan: Assessment: 1. Hypokalemia. Urine potassium 41.4 which is high in the setting of hypokalemia suggestive of renal potassium wasting. Aldosterone level low. Magnesium noted to be on the lower side which can induce renal potassium losses. TSH normal. Patient was also receiving IV fluids which can lead to renal potassium losses as well. 2. Hypomagnesemia from poor intake and chronic alcohol use causing renal magnesium wasting. On magnesium oxide. 3. Alcohol abuse. 4. Hyponatremia, initially hypovolemic. Now euvolemic. Improved. Plan: Maintain Aldactone. Maintain magnesium oxide. Encouraged oral intake. Repeat labs again in the morning and 2 to 3 days postdischarge.
[2023-10-16] MEDS: MAGNESIUM SULFATE-D5W PMX 1 GM in DEXTROSE/WATER 1 100ML.BAG IVPB SCH (11:48)
[2023-10-16] MEDS: POTASSIUM CHLORIDE ER 20 MEQ TAB.ER PO STA (11:49)
--- NOTE | 2023-10-16 17:00 | P.PN ---
Progress Note - Text Progress Note Date: 10/16/23 Chief Complaint: Weakness This is a 53-year-old patient, follows with Dr. Shell Bell. Patient had been drinking significant alcohol up to 3 months ago. When his mother he decided to stop drinking. For last 3 months he is not been able to eat well. V omiting occasionally. Weak and tired. He decided to call the EMS. When he went to open the door he fell backwards hitting his head. Never passed out. No other fever and chills. No diarrhea. Intermittently vomiting. Was drinking quite a bit prior to stopping 3 months ago. October 11: Patient has severe myopathy Severe hypokalemia. Aggressive potassium replacement had to be done. Magnesium replacement also done. 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 Patient today was able to walk about 220 feet with a rolling walker. Also tolerating his diet. Up in a chair. No vomiting. Discussed at length with the patient. Vitamin K had been added for hypercoagulable state. October 12: Patient feeling better. Able to keep his food down. INR coming down. Discussed at length with the patient. Increase activity. Hoping to discharge home tomorrow. October 13: Patient was walking felt weak in the leg and fell down. Hit his head. Stat CT scan did not show any fracture. No focal symptoms. No change in sensorium. Has a hematoma. Ice pack ordered. Patient wants to go to rehab. Process initiated. Potassium 3.2-replaced October 14: Resting in bed. Pending discharge to rehab. Authorization pending. Tolerating diet. Discussed with patient. Potassium is good today. October 15: New new issues. Tolerating diet. Pending discharge to rehab. Hopefully tomorrow. Active Medications Acetaminophen (Acetaminophen Tab 325 Mg Tab) 650 mg PO Q6HR PRN PRN Reason: Mild Pain or Fever > 100.5 Hydrocodone Bitart/Acetaminophen (Hydrocodone/Apap 5-325mg 1 Each Tab) 1 each PO Q4HR PRN PRN Reason: Moderate Pain (Scale 4 to 6) Last Admin: 10/14/23 21:17 Dose: 1 each Alprazolam (Alprazolam 1 Mg Tab) 1 mg PO TID [facility] Last Admin: 10/16/23 16:40 Dose: 1 mg Calcium Carbonate/Glycine (Calcium Carbonate 500 Mg Chewable) 500 mg PO TID [facility] Last Admin: 10/16/23 16:40 Dose: 500 mg Clopidogrel Bisulfate (Clopidogrel 75 Mg Tab) 75 mg PO DAILY [facility] Last Admin: 10/16/23 09:15 Dose: 75 mg Magnesium Oxide (Magnesium Oxide 400 Mg Tab) 400 mg PO TID [facility] Last Admin: 10/16/23 16:40 Dose: 400 mg Metoprolol Tartrate (Metoprolol Tartrate 50 Mg Tab) 50 mg PO BID [facility] Last Admin: 10/16/23 09:15 Dose: 50 mg Multivitamins (Multivitamins, Thera 1 Each Tab) 1 each PO DAILY [facility] Last Admin: 10/16/23 09:16 Dose: 1 each Naloxone HCl (Naloxone 0.4 Mg/Ml 1 Ml Vial) 0.2 mg IV Q2M PRN PRN Reason: Opioid Reversal Ondansetron HCl (Ondansetron 4 Mg/2 Ml Vial) 4 mg IVP Q8HR PRN PRN Reason: Nausea And Vomiting Last Admin: 10/11/23 11:16 Dose: 4 mg Pantoprazole Sodium (Pantoprazole 40 Mg Tablet) 40 mg PO AC-BID [facility] Last Admin: 10/16/23 16:40 Dose: 40 mg Phytonadione (Phytonadione Oral 5 Mg/5 Ml Oral.Syrg) 10 mg PO DAILY [facility] Last Admin: 10/16/23 10:13 Dose: 10 mg Potassium Chloride (Potassium Chloride Er 20 Meq Tab.Er) 20 meq PO DAILY [facility] Last Admin: 10/16/23 09:15 Dose: 20 meq Spironolactone (Spironolactone 25 Mg Tab) 50 mg PO DAILY [facility] Last Admin: 10/16/23 09:16 Dose: 50 mg Thiamine HCl (Thiamine 100 Mg Tab) 100 mg PO DAILY [facility] Last Admin: 10/16/23 09:15 Dose: 100 mg Social history: Lives alone. Was drinking heavy alcohol. Up to 3 months ago. Smoked on and off for 30 years stopped about 5 years ago. Currently not employed Physical examination: VITAL SIGNS: 98.1, 80, 16, 127 x 86, 93% room air GENERAL: Resting in bed EYES: Pupils equal. Conjunctiva cecy l. HEENT: External appearance of nose and ears normal, oral cavity grossly normal. Hematoma in the back of the head NECK: JVD not raised; masses not palpable. HEART: First and second heart sounds are normal; no edema. LUNGS: Respiratory rate normal; clear to auscultation. ABDOMEN: Soft, nontender, liver spleen not palpable, no masses palpable. PSYCH: Alert and oriented x3; mood and affect tired anxious l. MUSCULOSKELETAL:No Clubbing/cyanosis;muscles-grossly intact INVESTIGATIONS, reviewed in the clinical context: October 15: Sodium 137 potassium 3.[address] scan skull: No fracture October 12: Pro time 13.9 potassium 3.2 creatinine 0.51 Abdominal ultrasound: Liver enlarged. Increased attenuation. TSH 3.7 October 09: Potassium 2 bicarb 38 BUN 3 creatinine 0.6 lactic acid 5 calcium 7.6 total bilirubin 2.7 sodium 125 creatinine 0.55 Urine drug screen positive for benzodiazepine EKG tracing personally reviewed by me-normal sinus rhythm's. Some ST/T Wave changes. Venous Doppler left leg: Negative for DVT Chest x-ray film personally reviewed by me-unremarkable UA: Negative Assessment and plan: -Acute severe myopathy from multiple electrolyte abnormalities including severe hypokalemia: Better Hold Lipitor -Severe hypokalemia from persistent vomiting: Better Telemetry. Aggressive potassium replacement done -Hypomagnesemia Magnesium oxide 400 mg 3 times daily -Severe hyponatremia hypovolemia from poor oral intake: Improved Lactated Ringer's -Lactic acidosis, secondary to poor oral intake and vomiting -Abnormal coagulopathy. Possible underlying liver disease vitamin K. -Alcohol liver disease Supplement thiamine -Acute medical debility from electrolyte abnormalities poor oral intake improving PT OT -Full code No new issues. Pending rehab Past Medical History Past Medical History: CVA/TIA, Hyperlipidemia, Hypertension Additional Past Medical History / Comment(s): ETOH, diverticulitis History of Any Multi-Drug Resistant Organisms: None Reported Past Surgical History: Bowel Resection Additional Past Surgical History / Comment(s): 6 in of bowel removed. carotid artery surgery Past Anesthesia/Blood Transfusion Reactions: No Reported Reaction Past Psychological History: No Psychological Hx Reported Smoking Status: Former smoker, Vaper
[2023-10-17 07:34] VITALS: RESP 16; TEMP 97.8
--- NOTE | 2023-10-17 11:37 | P.PN ---
Subjective Patient is seen in follow-up for hypokalemia. Potassium level stable as of yesterday. Oral intake is good. Denies vomiting or diarrhea. No active complaints. Vital signs are stable. General: No acute distress. HEENT: Head exam is unremarkable. LUNGS: No audible rhonchi or wheezes. HEART: Rate and Rhythm are regular. ABDOMEN: Obese, nontender. EXTREMITITES: No edema. Objective - Vital Signs Vital signs: Vital Signs Temp 97.8 F 10/17/23 06:56 Pulse 95 10/17/23 06:56 Resp 16 10/17/23 06:56 BP 122/70 10/17/23 06:56 Pulse Ox 91 L 10/17/23 06:56 FiO2 Intake & Output 10/16/23 10/17/23 10/17/23 18:59 06:59 18:59 Intake Total 924 480 Output Total 2975 350 1300 Balance -2050 130 -1300 Intake: Oral 924 480 Output: Urine 2975 350 1300 Other: Voiding Method Urinal Urinal # Voids 1 # Bowel Movements 1 - Labs CBC & Chem 7: 10/10/23 12:21 10/16/23 05:45 Assessment and Plan Plan: Assessment: 1. Hypokalemia. Urine potassium 41.4 which is high in the setting of hypokalemia suggestive of renal potassium wasting. Aldosterone level low. Magnesium noted to be on the lower side which can induce renal potassium losses. TSH normal. Patient was also receiving IV fluids which can lead to renal pota ssium losses as well. 2. Hypomagnesemia from poor intake and chronic alcohol use causing renal magn esium wasting. On magnesium oxide. 3. Alcohol abuse. 4. Hyponatremia, initially hypovolemic. Now euvolemic. Improved. Plan: Maintain Aldactone. Maintain magnesium oxide. Encouraged oral intake. Repeat labs again in the morning and 2 to 3 days postdischarge.
[2023-10-17 12:04] LABS: INR 1.15 sec (0.93-1.11); Prothrombin Time 12.3 sec (9.9-11.9)
[2023-10-17 12:06] LABS: African American GFR (CKD) >90 (>60 ml/min/1.73 sqM); Anion Gap 6 mmol/L; Blood Urea Nitrogen 2 mg/dL (9-20); Calcium 8.8 mg/dL (8.4-10.2); Carbon Dioxide 30 mmol/L (22-30); Chloride 99 mmol/L (98-107); Glucose 89 mg/dL (74-99); Magnesium 1.8 mg/dL (1.6-2.3); Non-African American GFR(CKD) >90 (>60 ml/min/1.73 sqM); Sodium 135 mmol/L (137-145)
[2023-10-17 12:39] VITALS: BP 146/90; PULSE 80
--- NOTE | 2023-10-17 13:00 | P.DS ---
Providers Date of admission: 10/10/23 14:38 Expected date of discharge: 10/17/23 Attending physician: Dante Borges Consults: 10/10/23 16:49 Consult Physician Urgent Consulting Provider: Franchesca Barnhart Consult Reason/Comments: Hyponatremia Do you want consulting provider notified?: Yes Primary care physician: Shell Bell [facility] Course: Chief Complaint: Weakness This is a 53-year-old patient, follows with Dr. Shell Bell. Patient had been drinking significant alcohol up to 3 months ago. When his mother he decided to stop drinking. For last 3 months he is not been able to eat well. Vomiting occasionally. Weak and tired. He decided to call the EMS. When he went to open the door he fell backwards hitting his head. Never passed out. No other fever and chills. No diarrhea. Intermittently vomiting. Was drinking quite a bit prior to stopping 3 months ago. October 11: Patient has severe myopathy Severe hypokalemia. Aggressive potassium replacement had to be done. Magnesium replacement also done. 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 Patient today was able to walk about 220 feet with a rolling walker. Also tolerating his diet. Up in a chair. No vomiting. Discussed at length with the patient. Vitamin K had been added for hypercoagulable state. October 12: Patient feeling better. Able to keep his food down. INR coming down. Discussed at length with the patient. Increase activity. Hoping to discharge home tomorrow. October 13: Patient was walking felt weak in the leg and fell down. Hit his head. Stat CT scan did not show any fracture. No focal symptoms. No change in sensorium. Has a hematoma. Ice pack ordered. Patient wants to go to rehab. Process initiated. Potassium 3.2-replaced October 14: Resting in bed. Pending discharge to rehab. Authorization pending. Tolerating diet. Discussed with patient. Potassium is good today. October 15: New new issues. Tolerating diet. Pending discharge to rehab. Hopefully tomorrow. October 16: Patient been accepted to rehab. Discussed with patient. No new issues. Lipitor has been held because of muscle weakness. Social history: Lives alone. Was drinking heavy alcohol. Up to 3 months ago. Smoked on and off for 30 years stopped about 5 years ago. Currently not employed Physical examination: VITAL SIGNS: 97.8, 80, 16, 146/90, 90% room air GENERAL: Comfort Bill EYES: Pupils equal. Conjunctiva cecy l. HEENT: External appearance of nose and ears normal, oral cavity grossly normal. Hematoma in the back of the head NECK: JVD not raised; masses not palpable. HEART: First and second heart sounds are normal; no edema. LUNGS: Respiratory rate normal; clear to auscultation. ABDOMEN: Soft, nontender, liver spleen not palpable, no masses palpable. PSYCH: Alert and oriented x3; mood and affect normal MUSCULOSKELETAL:No Clubbing/cyanosis;muscles-grossly intact INVESTIGATIONS, reviewed in the clinical context: October 16: Pro time 12.3 sodium 135 potassium 4 creatinine 0.5 October 15: Sodium 137 potassium 3.[address] scan skull: No fracture October 12: Pro time 13.9 potassium 3.2 creatinine 0.51 Abdominal ultrasound: Liver enlarged. Increased attenuation. TSH 3.7 October 09: Potassium 2 bicarb 38 BUN 3 creatinine 0.6 lactic acid 5 calcium 7.6 total bilirubin 2.7 sodium 125 creatinine 0.55 Urine drug screen positive for benzodiazepine EKG tracing personally reviewed by me-normal sinus rhythm's. Some ST/T Wave changes. Venous Doppler left leg: Negative for DVT Chest x-ray film personally reviewed by me-unremarkable UA: Negative Assessment and plan: -Acute severe myopathy from multiple electrolyte abnormalities including severe hypokalemia: Better Hold Lipitor -Severe hypokalemia from persistent vomiting: Better Telemetry. Aggressive potassium replacement done -Hypomagnesemia Magnesium oxide replace meant -Severe hyponatremia hypovolemia from poor oral intake: Improved Lactated Ringer's -Lactic acidosis, secondary to poor oral intake and vomiting -Abnormal coagulopathy. Possible underlying liver disease vitamin K supplemented. -Alcohol liver disease Supplement thiamine -Acute medical debility from electrolyte abnormalities poor oral intake improving PT OT -Full code [facility] Past Medical History Past Medical History: CVA/TIA, Hyperlipidemia, Hypertension Additional Past Medical History / Comment(s): ETOH, diverticulitis History of Any Multi-Drug Resistant Organisms: None Reported Past Surgical History: Bowel Resection Additional Past Surgical History / Comment(s): 6 in of bowel removed. carotid artery surgery Past Anesthesia/Blood Transfusion Reactions: No Reported Reaction Past Psychological History: No Psychological Hx Reported Smoking Status: Former smoker, Vaper Plan - Discharge Summary Discharge Rx Participant: No New Discharge Prescriptions: New Magnesium Oxide [Mag-Ox] 400 mg PO DAILY #30 tab Pantoprazole [Protonix] 40 mg PO AC-BID #60 tab Thiamine [Vitamin B-1] 100 mg PO DAILY #30 tab Spironolactone [Aldactone] 25 mg PO DAILY #30 tab Metoprolol Tartrate [Lopressor] 50 mg PO BID #60 tab Multivitamins, Thera [Multivitamin (formulary)] 1 each PO DAILY #30 tab Calcium Carbonate [Tums] 500 mg PO TID tab Continue ALPRAZolam [Xanax] 1 mg PO TID Clopidogrel [Plavix] 75 mg PO DAILY Discontinued Metoprolol Tartrate [Lopressor] 75 mg PO DAILY Atorvastatin [Lipitor] 40 mg PO DAILY Discharge Medication List Clopidogrel [Plavix] 75 mg PO DAILY 06/02/23 [History] ALPRAZolam [Xanax] 1 mg PO TID 10/10/23 [History] Calcium Carbonate [Tums] 500 mg PO TID tab 10/14/23 [Rx] Magnesium Oxide [Mag-Ox] 400 mg PO DAILY #30 tab 10/14/23 [Rx] Metoprolol Tartrate [Lopressor] 50 mg PO BID #60 tab 10/14/23 [Rx] Multivitamins, Thera [Multivitamin (formulary)] 1 each PO DAILY #30 tab 10/14/23 [Rx] Pantoprazole [Protonix] 40 mg PO AC-BID #60 tab 10/14/23 [Rx] Spironolactone [Aldactone] 25 mg PO DAILY #30 tab 10/14/23 [Rx] Thiamine [Vitamin B-1] 100 mg PO DAILY #30 tab 10/14/23 [Rx] Follow up Appointment(s)/Referral(s): Debora Daly MD [STAFF PHYSICIAN] - 1 Week Shell Bell MD [Primary Care Provider] - 11/11/23 8:00 am Patient Instructions/Handouts: Metoprolol (By mouth), Spironolactone (By mouth), Thiamine (By mouth), Pantoprazole (By mouth), Magnesium Oxide (By mouth)
[2023-10-17 13:16] VITALS: BMI 34.4
== END 2023-10-17 18:48 | DRG 426 ==
LOC: EC 12:09 → 5NMEDONC 14:38
PROVIDERS: ADMIT Hospitalist; ATTEND Hospitalist
DX: E87.1 Hypo-osmolality and hyponatremia (principal); E87.20 Acidosis, unspecified; D68.69 Other thrombophilia; G72.89 Other specified myopathies; K70.9 Alcoholic liver disease, unspecified; F10.21 Alcohol dependence, in remission; I10 Essential (primary) hypertension; E86.1 Hypovolemia; E83.42 Hypomagnesemia; E87.6 Hypokalemia; S00.03XA Contusion of scalp, initial encounter; R11.15 Cyclical vomiting syndrome unrelated to migraine; R53.81 Other malaise; E78.5 Hyperlipidemia, unspecified; W01.0XXA Fall on same level from slipping, tripping and stumbling without subsequent striking against object, initial encounter; Y92.008 Other place in unspecified non-institutional (private) residence as the place of occurrence of the external cause; Z87.891 Personal history of nicotine dependence; Z86.73 Personal history of transient ischemic attack (TIA), and cerebral infarction without residual deficits; Z79.02 Long term (current) use of antithrombotics/antiplatelets; Z79.899 Other long term (current) drug therapy; Z11.52 Encounter for screening for COVID-19; Z87.19 Personal history of other diseases of the digestive system; Z90.49 Acquired absence of other specified parts of digestive tract
CPT/HCPCS: 36415; 70450; 71046; 72125; 76705; 80048; 80053; 80306; 80320; 81003; 82088; 82248; 82306; 82330; 83605; 83735; 83880; 83970; 84132; 84133; 84145; 84244; 84443; 84484; 85025; 85610; 85730; 87040; 87636; 93005; 93306; 94760; 96361; 96365; 96366; 96367; 99285